=== PATIENT | female | born 1995 | race Caucasian/White ===

== ENCOUNTER 2018-01-15 10:14 | Inpatient (IN) | payer SELFPAY ==
[2018-01-15 10:31] VITALS: BMI 25.9
--- NOTE | 2018-01-15 11:04 | HP ---
COWS - Scale Resting Pulse: 0= [place] 80 or Below Sweatin= Beads of Sweat on Face Restless Observation: 1= Difficult to Sit Still Pupil Size: 1= Pupils >than Normal Bone or Joint Aches: 1= Mild Discomfort Runny Nose/ Eye Tearin= Nasal Congestion GI Upset > 30mins: 2= Nausea/Diarrhea (c/o nausea) Tremor Observation: 2= Slight Tremor Visible Yawning Observation: 0= None Anxiety or Irritability: 1=Feels Anxious/Irritable Goose Flesh Skin: 0=Smooth Skin COWS Score: 12 Admission ROS S - [facility] Chief Complaint: Having opiate withdrawal. Here for detox. Allergies/Adverse Reactions: Allergies Allergy/AdvReac Type Severity Reaction Status Date / Time Penicillins Allergy Verified 01/15/18 10:46 History of Present Illness: 22 yof w/ hx of heroin use since age 17. Crack use since age 20. Marijuana use since age 14. Xanax use since age 16. States uses all substances daily. Was in [facility] rehab at age 16 x 2 months. Has only had 8 months of sobriety since beginning drug use. Was in a methadone program for 12 months and left in 2017. Denies alcohol use. Denies hx. seizures. States hx asthma but denies recent exacerbation. Hx. thyroid disorder and states stopped synthroid 2 years ago. Denies other significant healthcare issues. - Ebola screening Have you traveled outside of the country in the last 21 days: No Have you had contact with anyone from an Ebola affected area: No Have you been sick,other than usual withdrawal symptoms: No Do you have a fever: No - Review of Systems EENT: reports: No Symptoms Reported Respiratory: reports: Other (Hx. asthma. Denies recent exacerbation.) Cardiac: reports: No Symptoms Reported GI: reports: Nausea (w/ withdrawal) : reports: No Symptoms Reported Musculoskeletal: reports: Joint Pain (w/ withdrawal) Integumentary: reports: No Symptoms Reported Neuro: reports: No Symptoms reported Endocrine: reports: Other (Hx. thyroid disorder. Stopped synthroid 2 years ago.) Hematology: reports: Anemia (Was on iron. Stopped.) Psychiatric: reports: Orientated x3, Agitated, Anxious, Depressed (Denies suicide or violent ideation.) Patient History - Patient Medical History Hx Anemia: Yes (was on iron) Hx Asthma: Yes Hx Chronic Obstructive Pulmonary Disease (COPD): No Hx Cancer: No Hx Cardiac Disorders: No Hx Congestive Heart Failure: No Hx Hypertension: No Hx Hypercholesterolemia: No Hx Pacemaker: No HX Cerebrovascular Accident: No Hx Seizures: No Hx Dementia: No Hx Diabetes: Yes (borderline diabetes) Hx Gastrointestinal Disorders: No Hx Liver Disease: No Hx Genitourinary Disorders: No Hx Sexually Transmitted Disorders: No Hx Renal Disease (ESRD): No Hx Thyroid Disease: Yes (was on synthroid. Last took 2 years ago. ) Hx Human Immunodeficiency Virus (HIV): No Hx Hepatitis C: No Hx Depression: Yes (denies suicide or violent ideation. ) Hx Suicide Attempt: No Hx Bipolar Disorder: No Hx Schizophrenia: No - Patient Surgical History Past Surgical History: No - PPD History Previous Implant?: Yes Documented Results: Negative w/o proof Implanted On Prior [facility] Admission?: No - Reproductive History Last Menstrual Period: 01/01/18 Patient : No - Smoking Cessation Smoking history: Former smoker Have you smoked in the past 12 months: No Aproximately how many cigarettes per day: 6 If you are a former smoker, when did you quit?: at age 18 Hx Chewing Tobacco Use: No Initiated information on smoking cessation: No - Substance & Tx. History Hx Alcohol Use: No Hx Substance Use: Yes Substance Use Type: Cocaine, Heroin, Marijuana, Tranquilizers (Xanax) Hx Substance Use Treatment: Yes (elvin Newby) - Substances Abused Heroin Route: Inhalation Frequency: Daily Amount used: 20 BAGS Age of first use: 17 Date of Last Use: 01/15/18 (6 am) Crack Route: Smoking Frequency: Daily Amount used: $300-400 Age of first use: 20 Date of Last Use: 01/14/18 Marijuana/Hashish Route: Smoking Frequency: Daily Amount used: $20 Age of first use: 14 Date of Last Use: 01/15/18 Alprazolam (Xanax) Route: Oral Frequency: Daily Amount used: 8-10 mg Age of first use: 16 Date of Last Use: 01/14/18 Family Disease History - Family Disease History Family Disease History: CA: Father () Admission Physical Exam BHS - Vital Signs Vital Signs: Vital Signs - 24 hr 01/15/18 10:28 Temperature 98.0 F Pulse Rate 71 Respiratory 18 Rate Blood Pressure 111/57 - Physical General Appearance: Yes: Nourished, Irritable, Anxious HEENTM: Yes: EOMI, Hearing grossly Normal, Normal Voice, JUDITH (Pupils at 4 mm), Nasal Congestion Respiratory: Yes: Chest Non-Tender, Lungs Clear, Normal Breath Sounds, No Respiratory Distress Neck: Yes: No masses,lesions,Nodules, Supple Breast: Yes: Breast Exam Deferred Cardiology: Yes: Regular Rhythm, Regular Rate, S1, S2 Abdominal: Yes: Non Tender, Flat, Soft Genitourinary: Yes: Within Normal Limits Back: Yes: Normal Inspection Musculoskeletal: Yes: full range of Motion, Gait Steady Extremities: Yes: Normal Capillary Refill, Normal Range of Motion, Non-Tender, Tremors (mild tremors hands w/ extension) Neurological: Yes: spring coverer II-XII NML intact, Fully Oriented, Motor Strength 5/5, Normal Mood/Affect Integumentary: Yes: Normal Color, Dry, Warm Lymphatic: Yes: Within Normal Limits Cleared for Admission S - Detox or Rehab [facility] Level of Care: Medically Managed Detox Regimen/Protocol: Methadone [facility] Breath Alcohol Content Breath Alcohol Content: 0
[2018-01-15] MEDS ORDERED: P-EPHED 60MG/TRIPROLIDI 2.5MG TABLET PO PRN (11:31)
[2018-01-15] MEDS ORDERED: ACETAMINOPHEN 325 MG TABLET (FP) PO PRN (11:31)
[2018-01-15] MEDS ORDERED: MENTHOL/PHENOL 1 EACH UD MM PRN (11:31)
[2018-01-15] MEDS ORDERED: LOPERAMIDE HCL 2 MG CAPSULE PO PRN (11:31)
[2018-01-15] MEDS ORDERED: IBUPROFEN 400 MG TABLET (FP) PO PRN (11:31)
[2018-01-15] MEDS ORDERED: MAGNESIUM HYDROX 2400MG/30ML ORAL SUSPENSION 30 ML CUP PO PRN (11:31)
[2018-01-15] MEDS ORDERED: hydrOXYzine PAMOATE 50 MG CAPSULE (FP) PO PRN (11:31)
[2018-01-15] MEDS ORDERED: MAGNESIUM CITRATE 300 ML BOTTLE PO PRN (11:31)
[2018-01-15] MEDS ORDERED: guaiFENesin/D-METHORPHAN HB 10 ML UNIT-DOSE CUPS PO PRN (11:31)
[2018-01-15] MEDS ORDERED: MAG HYDROX/AL HYDROX/SIMETH 30 ML UNIT-DOSE CUP PO PRN (11:31)
[2018-01-15] MEDS ORDERED: ALBUTEROL SO4 18 GM HFA INHALER IH PRN (11:35)
[2018-01-15] MEDS ORDERED: METHADONE HCL 10 MG TABLET (FOR DETOX USE ONLY) PO ONE ×2 (12:10→23:00)
[2018-01-15] MEDS: diazePAM 5 MG TABLET PO PRN (13:27)
[2018-01-15] MEDS: CYCLOBENZAPRINE HCL 5 MG TABLET PO SCH ×2 (15:01→22:07)
[2018-01-15] MEDS ORDERED: THIAMINE HCL 100 MG TABLET (FP) PO SCH (22:00)
[2018-01-15] MEDS ORDERED: MELATONIN 5 MG TABLETS PO PRN (22:00)
[2018-01-16] MEDS: CYCLOBENZAPRINE HCL 5 MG TABLET PO SCH ×2 (05:41→14:35)
[2018-01-16] MEDS: diazePAM 5 MG TABLET PO PRN ×2 (05:43→10:11)
[2018-01-16] MEDS ORDERED: METHADONE HCL 10 MG TABLET (FOR DETOX USE ONLY) PO ONE (10:00)
[2018-01-16] MEDS ORDERED: PRENATAL VITAMINS W/ FOLIC ACID TABLET (FP) PO SCH (10:00)
--- NOTE | 2018-01-16 10:18 | PN ---
BHS COWS - Scale Resting Pulse: 0= [place] 80 or Below Sweatin= Chills/Flushing Restless Observation: 1= Difficult to Sit Still Pupil Size: 1= Pupils >than Normal Bone or Joint Aches: 2= Severe Diffuse Aches Runny Nose/ Eye Tearin= Runny Nose/Eyes GI Upset > 30mins: 1= Stomach Cramp Tremor Observation of Outstretched Hands: 2= Slight Tremor Visible Yawning Observation: 2= >3x During Session Anxiety or Irritability: 2=Irritable/Anxious Goose Flesh Skin: 0=Smooth Skin COWS Score: 14 BHS Progress Note (SOAP) Subjective: joint pain body ache trouble sleep at night restlessness anxiety irritable Objective: 01/16/18 10:17 Vital Signs Temperature 98.1 F 01/16/18 09:23 Pulse Rate 58 L 01/16/18 09:23 Respiratory Rate 16 01/16/18 09:23 Blood Pressure 109/71 01/16/18 09:23 O2 Sat by Pulse Oximetry (%) Laboratory Last Values HIV 1&2 Antibody Screen Negative 01/15/18 11:20 HIV P24 Antigen Negative 01/15/18 11:20 lab noted Assessment: 01/16/18 10:18 withdrawal sx Plan: continue detox
--- NOTE | 2018-01-16 10:46 | EKG ---
Test Reason : Blood Pressure : / mmHG Vent. Rate : 063 BPM Atrial Rate : 063 BPM P-R Int : 152 ms QRS Dur : 078 ms QT Int : 374 ms P-R-T Axes : -12 062 005 degrees QTc Int : 382 ms NORMAL SINUS RHYTHM NORMAL ECG WHEN COMPARED WITH ECG OF 04-DEC-2012 16:11, NO SIGNIFICANT CHANGE WAS FOUND Confirmed by PARESH HURTADO MD ([id number]) on 01/16/2018 10:46:34 AM Referred By: Confirmed By:PARESH HURTADO MD
--- NOTE | 2018-01-16 11:00 | CONSULT ---
[facility] Psychiatric Consult - Data Date of interview: 01/16/18 Admission source: [facility] Identifying data: This is 22 years old, single, unemployed,living alone female with no psychiatric hospitalization history, re[prts heroin use since age 17. Crack use since age 20. Marijuana use since age 14. Xanax use since age 16. Patient sxpressing withdrawal symptoms and seeking for detox. Substance Abuse History: Smoking Cessation. Smoking history: Former smoker. Have you smoked in the past 12 months: No. Aproximately how many cigarettes per day: 6. If you are a former smoker, when did you quit?: at age 18. Hx Chewing Tobacco Use: No. Initiated information on smoking cessation: No. - Substance & Tx. History. Hx Alcohol Use: No. Hx Substance Use: Yes. Substance Use Type: Cocaine, Heroin, Marijuana, Tranquilizers (Xanax). Hx Substance Use Treatment: Yes (Blayne Matamoros, a [facility]). - Substances Abused. Heroin. Route: Inhalation. Frequency: Daily. Amount used: 20 BAGS. Age of first use: 17. Date of Last Use: 01/15/18 (6 am). Crack. Route: Smoking. Frequency: Daily. Amount used: $300-400. Age of first use: 20. Date of Last Use: 01/14/18. Marijuana/Hashish. Route: Smoking. Frequency: Daily. Amount used: $20. Age of first use: 14. Date of Last Use: 01/15/18. Alprazolam (Xanax). Route: Oral. Frequency: Daily. Amount used: 8-10 mg. Age of first use: 16. Date of Last Use: 01/14/18 Medical History: Asthma Thyroid disorder, history of MMTP Psychiatric History: Patient reports history of depression and anxiety, reports no medications taking preior to admiossion, denies previous psychiatreric admissions. Physical/Sexual Abuse/Trauma History: Denies Additional Comment: Observation. Detox Unit Care Protocol Mental Status Exam - Mental Status Exam Alert and Oriented to: Person Cognitive Function: Fair Patient Appearance: Unkempt Mood: Sad Affect: Flat Patient Behavior: Sedated Speech Pattern: Delayed Voice Loudness: Mildly Soft/Quiet Thought Process: Circumstantial Thought Disorder: Being Controlled Hallucinations: Denies Suicidal Ideation: Denies Homicidal Ideation: Denies Insight/Judgement: Fair Sleep: Difficulty falling asleep Appetite: Fair Muscle strength/Tone: Mild Hypotonicity Gait/Station: Shuffling Additional Comments: Observation. Detox Unit Care Protocol Psychiatric Findings - Problem List ([place] 1, 2,3) (1) Drug-induced mood disorder Current Visit: Yes Status: Acute (2) Cocaine dependence Current Visit: Yes Status: Acute Qualifiers: Substance use status: in withdrawal Qualified Code(s): F14.23 - Cocaine dependence with withdrawal (3) Opiate withdrawal Current Visit: Yes Status: Acute (4) Cannabis dependence Current Visit: Yes Status: Chronic (5) Anxiolytic dependence Current Visit: No Status: Chronic - Initial Treatment Plan Initial Treatment Plan: Observation. Detox Unit Care Protocol
[2018-01-16 11:10] LABS: HEMATOCRIT 41.4 % (32.4-45.2); HEMOGLOBIN 13.9 GM/dL (10.7-15.3); MCHC 33.6 g/dl (32.0-36.0); MEAN CELL VOLUME 86.3 fl (80-96); MEAN PLT VOLUME 8.2 fl (7.5-11.1); PLATELET COUNT 303 K/MM3 (134-434); RDW 13.9 % (11.6-15.6); WHITE BLOOD COUNT 7.3 K/mm3 (4.0-10.0)
[2018-01-16] MEDS ORDERED: PNEUMOCOCCAL 23 VACCINE 0.5 ML VIAL IM ONE (12:00)
[2018-01-16] MEDS ORDERED: PNEUMOC 13-VAL CONJ-DIP CRM/PF 0.5 ML DISP.SYRIN IM ONE (12:00)
[2018-01-16 12:38] LABS: ALBUMIN 3.9 g/dl (3.4-5.0); ANION GAP 9 (8-16); BLOOD UREA NITROGEN 12 mg/dL (7-18); CALCIUM 9.1 mg/dL (8.5-10.1); CHLORIDE 106 mmol/L (98-107); CO2 27 mmol/L (21-32); GLUCOSE,RANDOM 94 mg/dL (74-106); SGOT/AST 19 U/L (15-37); SGPT/ALT 17 U/L (12-78); SODIUM 142 mmol/L (136-145)
[2018-01-16 12:48] LABS: ALK PHOS 64 U/L (45-117); BILIRUBIN,TOTAL 0.7 mg/dL (0.2-1.0); TOT PROT 7.8 g/dl (6.4-8.2)
[2018-01-16 13:40] VITALS: BP 106/50; PULSE 92; TEMP 98.2
--- NOTE | 2018-01-16 14:32 | DS ---
[facility] Detox Discharge Summary Admission Date: 01/15/18 Discharge Date: 01/16/18 - History Present History: Opioid Dependence Additional Comments: 22 years old female admitted 01/15/18 for opiate withdrawal sx insists to terminate the opiate detox regimen patient expressed "not ready" to free from opiate patient is alert oriented x 3 no acute distress strong recommend community self help support meetings and community health services for medical and mental issues - Physical Exam Results Vital Signs: Vital Signs Temperature 98.2 F 01/16/18 13:39 Pulse Rate 92 H 01/16/18 13:39 Respiratory Rate 16 01/16/18 13:39 Blood Pressure 106/50 01/16/18 13:39 O2 Sat by Pulse Oximetry (%) Pertinent Admission Physical Exam Findings: opiate withdrawal sx Vital Signs Temperature 98.2 F 01/16/18 13:39 Pulse Rate 92 H 01/16/18 13:39 Respiratory Rate 16 01/16/18 13:39 Blood Pressure 106/50 01/16/18 13:39 O2 Sat by Pulse Oximetry (%) Laboratory Last Values WBC 7.3 K/mm3 (4.0-10.0) 01/16/18 06:00 RBC 4.80 M/mm3 (3.60-5.2) 01/16/18 06:00 Hgb 13.9 GM/dL (10.7-15.3) D 01/16/18 06:00 Hct 41.4 % (32.4-45.2) 01/16/18 06:00 MCV 86.3 fl (80-96) 01/16/18 06:00 MCH 29.0 pg (25.7-33.7) D 01/16/18 06:00 MCHC 33.6 g/dl (32.0-36.0) 01/16/18 06:00 RDW 13.9 % (11.6-15.6) D 01/16/18 06:00 Plt Count 303 K/MM3 (134-434) 01/16/18 06:00 MPV 8.2 fl (7.5-11.1) 01/16/18 06:00 Sodium 142 mmol/L (136-145) 01/16/18 06:00 Potassium 4.0 mmol/L (3.5-5.1) 01/16/18 06:00 Chloride 106 mmol/L (98-107) 01/16/18 06:00 Carbon Dioxide 27 mmol/L (21-32) 01/16/18 06:00 Anion Gap 9 (8-16) 01/16/18 06:00 BUN 12 mg/dL (7-18) 01/16/18 06:00 Creatinine 1.0 mg/dL (0.55-1.02) 01/16/18 06:00 Creat Clearance w eGFR > 60 (>60) 01/16/18 06:00 Random Glucose 94 mg/dL (74-106) 01/16/18 06:00 Calcium 9.1 mg/dL (8.5-10.1) 01/16/18 06:00 Total Bilirubin 0.7 mg/dL (0.2-1.0) D 01/16/18 06:00 AST 19 U/L (15-37) 01/16/18 06:00 ALT 17 U/L (12-78) 01/16/18 06:00 Alkaline Phosphatase 64 U/L (45-117) 01/16/18 06:00 Total Protein 7.8 g/dl (6.4-8.2) 01/16/18 06:00 Albumin 3.9 g/dl (3.4-5.0) 01/16/18 06:00 TSH 3.10 uIU/ml (0.358-3.74) 01/16/18 06:00 Resin T3 Uptake 31.0 % (30-39) 01/16/18 06:00 RPR Titer Nonreactive (NONREACTIVE) 01/16/18 06:00 HIV 1&2 Antibody Screen Negative 01/15/18 11:20 HIV P24 Antigen Negative 01/15/18 11:20 lab noted - Treatment Hospital Course: Detox Protocol Followed, Responded well Patient has Accepted a Rehab Referral to: as per counselor arranged - Medication Discharge Medications: Ambulatory Orders Albuterol Sulfate Inhaler - [Ventolin HFA Inhaler -] 2 inh PO Q4H PRN 01/15/18 - Diagnosis (1) Opioid dependence with withdrawal Status: Acute (2) Anxiety Status: Suspected (3) Asthma Status: Chronic Qualifiers: Asthma severity: mild Asthma persistence: intermittent Asthma complication type: with status asthmaticus Qualified Code(s): J45.22 - Mild intermittent asthma with status asthmaticus - AMA Did Patient Leave Against Medical Advice: Yes
[2018-01-17] MEDS ORDERED: METHADONE HCL 5 MG TABLET (FOR DETOX USE ONLY) PO ONE (10:00)
[2018-01-18] MEDS ORDERED: METHADONE HCL 5 MG TABLET (FOR DETOX USE ONLY) PO ONE (10:00)
[2018-01-19] MEDS ORDERED: METHADONE HCL 10 MG TABLET (FOR DETOX USE ONLY) PO ONE (10:00)
[2018-01-20] MEDS ORDERED: METHADONE HCL 5 MG TABLET (FOR DETOX USE ONLY) PO ONE (06:00)
== END 2018-01-16 14:39 | disposition left against medical advice (07) | DRG 770 ==
LOC: YASAS 10:14 → Y6N 11:35
PROVIDERS: ADMIT Family Medicine Addiction Medicine; ATTEND Family Medicine Addiction Medicine
PROC: HZ2ZZZZ Detoxification Services for Substance Abuse Treatment (ICD-10-PCS; principal; 2018-01-15)
DX: F11.23 Opioid dependence with withdrawal (principal); F13.20 Sedative, hypnotic or anxiolytic dependence, uncomplicated; F14.23 Cocaine dependence with withdrawal; F12.20 Cannabis dependence, uncomplicated; F32.9 Major depressive disorder, single episode, unspecified; F19.24 Other psychoactive substance dependence with psychoactive substance-induced mood disorder; F41.9 Anxiety disorder, unspecified; J45.22 Mild intermittent asthma with status asthmaticus; D64.9 Anemia, unspecified; Z88.0 Allergy status to penicillin
CPT/HCPCS: 36415; 80053; 84436; 84443; 84479; 85027; 86593; 87389; 93005; 93010

== ENCOUNTER 2018-04-24 07:42 | Emergency (ER) | payer SELFPAY ==
[2018-04-24 07:58] VITALS: BP 108/57; PULSE 84; TEMP 98.6; BMI 25.8
--- NOTE | 2018-04-24 08:43 | PDOC ---
History of Present Illness - General Chief Complaint: ,Possible Stated Complaint: /STD TESTING Time Seen by Provider: 04/24/18 08:31 History Source: Patient Exam Limitations: No Limitations - History of Present Illness Travel History: No Initial Comments: 04/24/18 08:47 CAME For testing./ States last normal menstrual cycle was December 26 and feels is probably for months . Was an unplanned but has intention to keep child. Needs DDS documentation of positive as she Has plans to enter detox next week for heroin detoxification. Timing/Duration: reports: changing over time Past History - Travel Traveled outside of the country in the last 30 days: No Close contact w/someone who was outside of country & ill: No - Past Medical History Allergies/Adverse Reactions: Allergies Allergy/AdvReac Type Severity Reaction Status Date / Time Penicillins Allergy Verified 04/24/18 07:55 Home Medications: Ambulatory Orders Albuterol Sulfate Inhaler - [Ventolin HFA Inhaler -] 2 inh PO Q4H PRN 01/15/18 Vitamins (Sjr) - 1 tab PO DAILY #30 tablet 04/24/18 Anemia: Yes (was on iron) Asthma: Yes Cancer: No Cardiac Disorders: No CVA: No COPD: No CHF: No Dementia: No Diabetes: Yes (borderline diabetes) GI Disorders: No Disorders: No HTN: No Hypercholesterolemia: No Kidney Stones: No Liver Disease: No Seizures: No Thyroid Disease: Yes (was on synthroid. Last took 2 years ago. ) - Reproductive History PID: No - Suicide/Smoking/Psychosocial Hx Smoking Status: Yes Smoking History: Never smoked Have you smoked in the past 12 months: No Number of Cigarettes Smoked Daily: 6 If you are a former smoker, when did you quit?: at age 18 'Breaking Loose' booklet given: 08/11/14 Hx Alcohol Use: No Drug/Substance Use Hx: Yes Substance Use Type: Cocaine, Heroin, Marijuana, Tranquilizers (Xanax) Hx Substance Use Treatment: Yes (elvin Newby) Abd/GI Specific PMHX - Complaint Specific PMHX Hepatitis: No Pancreatitis: No Review of Systems - Review of Systems Able to Perform ROS?: Yes Is the patient limited [place] proficient: Yes Constitutional: Yes: See HPI. No: Symptoms Reported, Fever, Malaise ABD/GI: Yes: See HPI, Nausea. No: Symptoms Reported : No: Symptoms Reported All Other Systems: Reviewed and Negative *Physical Exam - Vital Signs Last Vital Signs Temp Pulse Resp BP Pulse Ox 98.6 F 84 18 108/57 L 98 04/24/18 07:55 04/24/18 07:55 04/24/18 07:55 04/24/18 07:55 04/24/18 07:55 - Physical Exam General Appearance: Yes: Nourished, Appropriately Dressed. No: Apparent Distress HEENT: positive: JUDITH, Normal ENT Inspection, Normal Voice, TMs Normal, Pharynx Normal Neck: positive: Supple. negative: Tender Respiratory/Chest: positive: Lungs Clear Gastrointestinal/Abdominal: positive: Tender (mild ), Soft, Distended (firm / gravid abdomen ). negative: Guarding, Rebound Musculoskeletal: positive: Normal Inspection. negative: CVA Tenderness Extremity: positive: Normal Capillary Refill, Normal Inspection Integumentary: positive: Normal Color, Dry, Warm Neurologic: positive: barrel rifler hook II-XII NML intact, Fully Oriented, Alert, Normal Mood/ Affect, Normal Response, Motor Strength 5/5 *DC/Admit/Observation/Transfer Diagnosis at time of Disposition: Qualifiers: Weeks of gestation: unspecified Qualified Code(s): Z34.90 - Encounter for supervision of normal , unspecified, unspecified trimester - Discharge Dispostion Disposition: HOME Condition at time of disposition: Stable Decision to Admit order: No - Prescriptions Prescriptions: Vitamins (S[facility]r) - 1 tab PO DAILY #30 tablet - Referrals [facility]: [facility]Outside] - Patient Instructions Additional Instructions: Rest, avoid heavy lifting or strenuous activity Rink lots of fluids, water, teas, soups vitamins daily Avoid any further drug use to avoid fetus injury Have appointment as soon as possible - Post Discharge Activity
== END 2018-04-24 09:09 | disposition home or self-care (01) ==
LOC: JER 07:42 → JERFT 07:42
DX: Z34.90 Encounter for supervision of normal pregnancy, unspecified, unspecified trimester (principal)
CPT/HCPCS: 84703; 99281-25

== ENCOUNTER 2018-09-25 21:25 | Inpatient (IN) | payer OTHER ==
[~2018-09-25 21:25] MED LIST: DEXTROSE 5%-LACTATED RINGERS 1,000 ML IV SCH
[2018-09-25 22:10] LABS: BASO % 0.3 % (0-2.0); HEMATOCRIT 34.9 % (32.4-45.2); HEMOGLOBIN 12.2 GM/dL (10.7-15.3); LYMPH % 19.8 % (8-40); MCH 31.3 pg (25.7-33.7); MCHC 34.8 g/dl (32.0-36.0); MEAN CELL VOLUME 89.8 fl (80-96); MEAN PLT VOLUME 8.3 fl (7.5-11.1); MONO % 8.3 % (3.8-10.2); NEUT % 70.6 % (42.8-82.8); PLATELET COUNT 221 K/MM3 (134-434); RBC 3.89 M/mm3 (3.60-5.2); RDW 13.3 % (11.6-15.6)
[2018-09-25 22:14] VITALS: BMI 33.1
[2018-09-25 22:27] LABS: INR 0.86 (0.83-1.09); PROTHROMBIN TIME (PATIENT) 10.1 SEC (9.7-13.0)
[2018-09-25 22:30] LABS: ACTIVATED PTT 27.4 SECONDS (25.2-36.5)
[2018-09-25 22:54] LABS: ANION GAP 7 MMOL/L (8-16); BLOOD UREA NITROGEN 9 mg/dL (7-18); CALCIUM 8.6 mg/dL (8.5-10.1); CHLORIDE 105 mmol/L (98-107); CO2 26 mmol/L (21-32); CREATININE 0.8 mg/dL (0.55-1.3); GLUCOSE,RANDOM 92 mg/dL (74-106); POTASSIUM 4.1 mmol/L (3.5-5.1); SODIUM 138 mmol/L (136-145)
[2018-09-25] MEDS ORDERED: BUTORPHANOL TARTRATE 1 MG/ML VIAL IVPB ONE (23:33)
[2018-09-26] MEDS: ELECTROLYTE-148 SOLN 1,000 ML IV SCH ×2 (00:10→06:30)
--- NOTE | 2018-09-26 00:50 | HP ---
Past Medical History - Admission Chief Complaint: SROM History of Present Illness: 23yo @ 37.6wks here with SROM- 8:55pm. Clear fluid. No VB. +ctx. +FM Preg c/b methadone use 120mg History Source: Patient Limitations to Obtaining History: No Limitations - Past Medical History ...: 1 ...Para: 0 ...Term: 0 ...: 0 ...Spon : 0 ...Induced : 0 ...Multiple Gestation: 0 ...LMP: 01/02/18 ... Weeks Gestation by Dates: 37.6 ...EDC by Dates: 10/10/18 ...EDC by Sono: 10/09/18 Infectious Disease: No: AIDS, C-Diff, Herpes Zoster, HIV, MRSA, STD's, Tuberculosis, VREF, Other Musculoskeletal: No: Bursitis, Chronic low back pain, Hemiparesis, Hemiplegia, Osteoarthritis, Paraplegia, Other Rheumatology: No: Fibromyalgia, Gout, Lupus, Rheumatoid Arthritis, Sarcoidosis, Vasculitis, Other ENT: No: Allergic Rhinitis, Sinusitis, Other Endocrine: No: [place]'s Disease, [place]'s Disease, Diabetes Insipidus, Diabetes Mellitus, Hyperparathyroidism, Hyperthyroidism, Hypothyroidism, Osteopenia, SIADH, Other Dermatology: No: Basal Cell, Cellulitis, Eczema, Melanoma, Psoriasis, Squamous Cell, Other - Past Surgical History Past Surgical History: No: None, AAA Repair, AICD, Amputation, Appendectomy, Arthrosocopy, AV Fistula/Graft, Bariatric Surgery, Breast Biopsy, Bypass, CABG, Carotid Endarterectomy, Cataract Removal, Cholecystectomy, Colectomy, Colonoscopy, Colostomy, Craniotomy, , Cystectomy, Hernia Repair, Hysterectomy, Ileal Conduit, Ileosotomy, Joint Replacement, Kidney Transplant, Laminectomy, Liver Transplant, Mastectomy, Nephrectomy, Oopherectomy, Orchiectomy, Permanent Pacemaker, Prostatectomy, Splenectomy, Stent, Thoracotomy , TURP, Tonsillectomy, Tubal Ligation, Upper Endoscopy, Valve Replacement, Vasectomy, Vein Stripping/Ligation Hx Myomectomy: No Hx Transabdominal Cerclage: No - Smoking History Smoking history: Never smoked Have you smoked in the past 12 months: No Aproximately how many cigarettes per day: 6 If you are a former smoker, when did you quit?: at age 18 - Alcohol/Substance Use Hx Alcohol Use: No History of Substance Use: reports: Heroin, Prescription - Social History Usual Living Arrangement: Yes: Alone ADL: Independent History of Recent Travel: No Home Medications - Allergies Allergies/Adverse Reactions: Allergies Allergy/AdvReac Type Severity Reaction Status Date / Time Penicillins Allergy Swelling Verified 09/25/18 21:37 - Home Medications Home Medications: Ambulatory Orders Vitamins (Sjr) - 1 tab PO DAILY #30 tablet 04/24/18 Ferrous Sulfate [Feosol] 1 tab PO DAILY 09/25/18 Methadone 120 mg PO DAILY 09/25/18 Family Disease History - Family Disease History Family Disease History: CA: Father () Physical Exam - Maternity Vital Signs: Vital Signs Temperature 98.5 F 09/25/18 22:01 Pulse Rate 78 09/25/18 23:00 Respiratory Rate 20 09/25/18 23:00 Blood Pressure 136/67 09/25/18 23:00 O2 Sat by Pulse Oximetry (%) - Abdominal Exam/OB Number of Fetuses: Single Presentation: Vertex Contractions: Yes Regularity: Irritability Intensity: Mild Heart Rate [facility]: [facility] Category: I Accelerations: Non-Uniform Decelerations: None - Vaginal Exam/OB Vaginal Bleediing: No Dilatation (cm): 1 Effacement (%): 50 Amniotic Membrane Status: Ruptured Nitrazine Test: Positive Amniotic Fluid: Yes: Clear Meconium: Light Presentation: Vertex/Position Station: -3 - Labs Lab Results: CBC, BMP 09/25/18 22:00 09/25/18 22:00 Problem List - Problems (1) SROM (spontaneous rupture of membranes) Code(s): [id number] - Assessment/Plan 23yo @ 37.6wks here with SROM Admit to L&D IVFs GBS neg Regular ctx, will augment if needed Epidural as needed Anticipate CALOS Knott MD
[2018-09-26] MEDS ORDERED: FENTANYL/BUPIVACAINE/NS/PF - PCEA - 50 ML DISP.SYRIN EP ONE ×2 (02:51→07:09)
[2018-09-26] MEDS ORDERED: NALOXONE HCL 0.4 MG/ML VIAL IVPUSH PRN (03:33)
[2018-09-26] MEDS ORDERED: FENTANYL/BUPIVACAINE/NS/PF - PCEA - 50 ML DISP.SYRIN EP SCH (03:45)
[2018-09-26] MEDS ORDERED: LIDOCAINE HCL 1% PRESERVATIVE FREE - 30ML VIAL ONE (07:24)
[2018-09-26] MEDS ORDERED: OXYTOCIN 20 UNITS in 0.9% NS 20 UNIT/1,000 ML INFUS.BAG IV ONE ×2 (07:24→09:18)
[2018-09-26] MEDS: METHADONE HCL 40 MG DISPERSABLE TABLET PO SCH (08:30)
[2018-09-26] MEDS ORDERED: WITCH HAZEL 50% (TUCKS) 40 PAD/JAR PAD TP PRN (08:31)
[2018-09-26] MEDS ORDERED: BENZOCAINE 20% 57 GM BOTTLE TP PRN (08:31)
[2018-09-26] MEDS ORDERED: ACETAMINOPHEN 325 MG TABLET (FP) PO PRN (08:31)
[2018-09-26] MEDS ORDERED: IBUPROFEN 600 MG TABLET (FP) PO PRN (08:31)
[2018-09-26] MEDS ORDERED: BISACODYL 10 MG SUPP.RECT RC PRN (08:31)
[2018-09-26] MEDS ORDERED: BENZOCAINE 28 GM HEMORRHOIDAL OINTMENT TP PRN (08:31)
[2018-09-26] MEDS ORDERED: METHYLERGONOVINE MALEATE 0.2 MG/1 ML AMP IM PRN (08:31)
--- NOTE | 2018-09-26 08:35 | PN ---
Delivery - Delivery Vaginal Delivery: Spontaneous Episiotomy/Laceration: None EBL (cc): 300 Delivery, Single - Feeding Plan Initial Plan: Elected not to breastfeed exclusively throughout hospitalization Remarks - Remarks Remarks: Normal spontaneous vaginal delivery of a live infant boy over intact perineum. Nose / Oropharynx suctioned @ perineum. Cord clamped and cut. Baby handed to nurse. Placenta removed in pieces. Mother. in stable condition
[2018-09-26] MEDS: OXYTOCIN 20 UNITS in 0.9% NS 20 UNIT/1,000 ML INFUS.BAG IV SCH (09:00)
[2018-09-26] MEDS: PRENATAL VITAMINS W/ FOLIC ACID TABLET (FP) PO SCH (10:09)
[2018-09-26] MEDS: FERROUS SO4 325 MG TABLET (FP) PO SCH (17:09)
[2018-09-27] MEDS: METHADONE HCL 40 MG DISPERSABLE TABLET PO SCH (06:15)
[2018-09-27 07:07] LABS: BASO % 0.7 % (0-2.0); EOS % 1.4 % (0-4.5); HEMATOCRIT 30.5 % (32.4-45.2); HEMOGLOBIN 10.6 GM/dL (10.7-15.3); LYMPH % 24.9 % (8-40); MCH 31.6 pg (25.7-33.7); MCHC 34.9 g/dl (32.0-36.0); MEAN CELL VOLUME 90.6 fl (80-96); MEAN PLT VOLUME 8.1 fl (7.5-11.1); MONO % 7.4 % (3.8-10.2); NEUT % 65.6 % (42.8-82.8); PLATELET COUNT 199 K/MM3 (134-434); RBC 3.37 M/mm3 (3.60-5.2); WHITE BLOOD COUNT 10.5 K/mm3 (4.0-10.0)
--- NOTE | 2018-09-27 07:46 | PN ---
Progress Note (short form) - Note Progress Note: ppd 1 doing well, no excess vaginal bleeding CBC, BMP 09/25/18 22:00 Last Vital Signs Temp Pulse Resp BP Pulse Ox 98.4 F 74 20 120/75 99 09/27/18 06:00 09/27/18 06:00 09/27/18 06:00 09/27/18 06:00 09/26/18 09:15 abdomen soft , firm , non tender no calf tenderness plan ambulate , cbc
[2018-09-27] MEDS: PRENATAL VITAMINS W/ FOLIC ACID TABLET (FP) PO SCH (09:05)
[2018-09-27] MEDS: FERROUS SO4 325 MG TABLET (FP) PO SCH ×2 (09:05→16:58)
[2018-09-27] MEDS ORDERED: SENNOSIDES/DOCUSATE COMBO (SENNA PLUS) TABLET (UD) PO PRN (22:00)
[2018-09-28] MEDS: OXYTOCIN 20 UNITS in 0.9% NS 20 UNIT/1,000 ML INFUS.BAG IV SCH (00:15)
[2018-09-28] MEDS: ELECTROLYTE-148 SOLN 1,000 ML IV SCH (00:15)
[2018-09-28] MEDS: METHADONE HCL 40 MG DISPERSABLE TABLET PO SCH (06:45)
--- NOTE | 2018-09-28 08:01 | PN ---
Post Progress Note - Subjective Subjective: no complains Post Day: 2 Type of Delivery: Vital Signs: Vital Signs Temperature 98.3 F 09/27/18 22:00 Pulse Rate 83 09/27/18 22:00 Respiratory Rate 18 09/27/18 22:00 Blood Pressure 126/73 09/27/18 22:00 O2 Sat by Pulse Oximetry (%) 99 09/26/18 09:15 Breast Exam: Yes: Soft, Other (pumping breast milk for BF ). No: Engorged Uterus: Yes: Fundus Firm, Fundus below umbilicus, Non-tender Lochia: Yes: Rubra Lochia, amount: Moderate Extremities: Yes: Calves non-tender Perineum: Yes: Intact Activity: Ambulating - Labs Labs: CBC WBC 10.5 K/mm3 (4.0-10.0) H 09/27/18 06:36 RBC 3.37 M/mm3 (3.60-5.2) L 09/27/18 06:36 Hgb 10.6 GM/dL (10.7-15.3) L 09/27/18 06:36 Hct 30.5 % (32.4-45.2) L 09/27/18 06:36 MCV 90.6 fl (80-96) 09/27/18 06:36 MCH 31.6 pg (25.7-33.7) 09/27/18 06:36 MCHC 34.9 g/dl (32.0-36.0) 09/27/18 06:36 RDW 13.0 % (11.6-15.6) 09/27/18 06:36 Plt Count 199 K/MM3 (134-434) 09/27/18 06:36 MPV 8.1 fl (7.5-11.1) 09/27/18 06:36 Absolute Neuts (auto) 6.9 K/mm3 (1.5-8.0) 09/27/18 06:36 Neutrophils % 65.6 % (42.8-82.8) 09/27/18 06:36 Lymphocytes % 24.9 % (8-40) D 09/27/18 06:36 Monocytes % 7.4 % (3.8-10.2) 09/27/18 06:36 Eosinophils % 1.4 % (0-4.5) 09/27/18 06:36 Basophils % 0.7 % (0-2.0) 09/27/18 06:36 Nucleated RBC % 0 % (0-0) 09/27/18 06:36 Problem List - Problems (1) Vaginal delivery Code(s): O80 - ENCOUNTER FOR FULL-TERM UNCOMPLICATED DELIVERY (2) Encounter for care and examination after delivery Code(s): Z39.2 - ENCOUNTER FOR ROUTINE FOLLOW-UP Assessment/Plan stab;e plan she will ct Methadone rehab program . pt states she is clean . Baby is retained in the hosp. discharge today
[2018-09-28 10:01] VITALS: BP 117/73; PULSE 90; TEMP 98.9
[2018-09-28] MEDS: FERROUS SO4 325 MG TABLET (FP) PO SCH (10:13)
[2018-09-28] MEDS: PRENATAL VITAMINS W/ FOLIC ACID TABLET (FP) PO SCH (10:13)
== END 2018-09-28 10:35 | disposition home or self-care (01) | DRG 560 ==
LOC: JLDR 21:25 → J3W 09-26 09:37
PROVIDERS: ADMIT Obstetrics & Gynecology; ATTEND Obstetrics & Gynecology
PROC: 10E0XZZ Delivery of Products of Conception, External Approach (ICD-10-PCS; principal; 2018-09-26)
DX: O80 Encounter for full-term uncomplicated delivery (principal); Z3A.37 37 weeks gestation of pregnancy; Z37.0 Single live birth
CPT/HCPCS: 36415; 59409; 80048; 85025; 85610; 85730; 86593; 86850; 86900; 86901

== ENCOUNTER 2019-03-24 04:24 | Emergency (ER) | payer OTHER ==
[2019-03-24 04:32] VITALS: BMI 28.6
[2019-03-24] MEDS ORDERED: ACETAMINOPHEN 325 MG TABLET (FP) PO ONE (04:33)
[2019-03-24] MEDS ORDERED: ACETAMINOPHEN 325 MG TABLET (FP) ONE (04:42)
[2019-03-24] MEDS ORDERED: ACETAMINOPHEN INJECTION 100 ML IVPB ONE (04:45)
[2019-03-24] MEDS ORDERED: SODIUM CHLORIDE 1,000 ML IV SCH (04:45)
--- NOTE | 2019-03-24 04:56 | PDOC ---
Attending Attestation - Resident Resident Name: Azalia Mejias - ED Attending Attestation I have performed the following: I have examined & evaluated the patient, The case was reviewed & discussed with the resident, I agree w/resident's findings & plan - HPI HPI: 03/24/19 05:55 Pt comes with a cold and a sore throat. He kids are sick. She is and she wants to leave soon so that she can get her methadone from her meth program. - Physicial Exam PE: 03/24/19 05:56 Agree with resident exam - Medical Decision Making 03/24/19 05:56 Pt is getting IV hydration and she will follow with her PMD as needed. CBC is normal. Exam is normal. IVF given. 03/24/19 06:22 CBC normal; Chem and UA pending. 03/24/19 06:26 Pt has a UTI and she will be treated with macrobid x 5 days BID
--- NOTE | 2019-03-24 04:57 | PDOC ---
History of Present Illness - General Chief Complaint: Cold Symptoms Stated Complaint: FEVER Time Seen by Provider: 03/24/19 04:33 - History of Present Illness Initial Comments: 03/24/19 04:52 23 year old woman 10 weeks fever and sore throat since last ngiht tmax 104F just prior to arrival no cough, no abdominal pain, no dysuria two kids at home with recent viral URI and coxsackie takes methadone 120mg, next dose at 0600, prescribed by [facility] PE: erythematous oropharynx no exudate ctab, rrr ED Course: strep negative + uti penicillin allergy macrobid dosed send home Past History - Past Medical History Allergies/Adverse Reactions: Allergies Allergy/AdvReac Type Severity Reaction Status Date / Time Penicillins Allergy Swelling Verified 03/24/19 04:32 Home Medications: Ambulatory Orders Vitamins (Sjr) - 1 tab PO DAILY #30 tablet 04/24/18 Ferrous Sulfate [Feosol] 1 tab PO DAILY 09/25/18 Methadone 120 mg PO DAILY 09/25/18 Acetaminophen [Tylenol .Regular Strength -] 650 mg PO Q3H PRN tablet 09/28/18 Ferrous Sulfate [Feosol] 325 mg PO BIDWM tab 09/28/18 Ibuprofen [Motrin -] 200 mg PO Q4H PRN tablet 09/28/18 Methadone [Dolophine -] 120 mg PO DAILY@0600 #1 tablet MDD 120 mg 09/28/18 Vitamins (Sjr) - 1 tab PO DAILY tablet 09/28/18 Nitrofurantoin Monohyd/M-Cryst [Macrobid -] 100 mg PO BID #10 capsule 03/24/19 Anemia: Yes (was on iron) Asthma: No Cancer: No Cardiac Disorders: No CVA: No COPD: No CHF: No Dementia: No Diabetes: No GI Disorders: No Disorders: No HTN: No Hypercholesterolemia: No Kidney Stones: No Liver Disease: No Seizures: No Thyroid Disease: No - Reproductive History PID: No - Suicide/Smoking/Psychosocial Hx Smoking Status: Yes Smoking History: Never smoked Have you smoked in the past 12 months: No Number of Cigarettes Smoked Daily: 6 If you are a former smoker, when did you quit?: at age 18 Information on smoking cessation initiated: No 'Breaking Loose' booklet given: 08/11/14 Hx Alcohol Use: No Drug/Substance Use Hx: No Substance Use Type: Cocaine, Heroin, Marijuana, Tranquilizers (Xanax) Hx Substance Use Treatment: Yes (on methadone) *Physical Exam - Vital Signs Last Vital Signs Temp Pulse Resp BP Pulse Ox 99.9 F H 121 H 20 116/84 98 03/24/19 04:24 03/24/19 04:24 03/24/19 04:24 03/24/19 04:24 03/24/19 04:24 ED Treatment Course - LABORATORY CBC & Chemistry Diagram: 03/24/19 05:00 03/24/19 05:00 *DC/Admit/Observation/Transfer Diagnosis at time of Disposition: UTI (urinary tract infection), Viral URI - Discharge Dispostion Condition at time of disposition: Fair Decision to Admit order: No - Prescriptions Prescriptions: Nitrofurantoin Monohyd/M-Cryst [Macrobid -] 100 mg PO BID #10 capsule - Referrals Referrals: Blair Lockett MD [Primary Care Provider] - - Patient Instructions Printed Discharge Instructions: DI for Viral Upper Respiratory Infection -- Adult, DI for Urinary Tract Infection (UTI) Additional Instructions: You were seen in the ED for complaints of fever and sore throat Your labs showed a urinary tract infection and you likely have a viral upper respiratory fracture. You were prescribed antibiotics for your UTI, please take as indicated. Return to the ED if you have worsening symptoms nausea, vomiting or blood in the urine. - Post Discharge Activity
[2019-03-24 05:14] LABS: BASO % 0.4 % (0-2.0); EOS % 0.1 % (0-4.5); HEMATOCRIT 38.8 % (32.4-45.2); HEMOGLOBIN 13.5 GM/dL (10.7-15.3); LYMPH % 9.8 % (8-40); MCH 29.1 pg (25.7-33.7); MCHC 34.8 g/dl (32.0-36.0); MEAN CELL VOLUME 83.6 fl (80-96); MEAN PLT VOLUME 7.9 fl (7.5-11.1); MONO % 7.5 % (3.8-10.2); NEUT % 82.2 % (42.8-82.8); PLATELET COUNT 212 K/MM3 (134-434); RBC 4.64 M/mm3 (3.60-5.2); RDW 15.4 % (11.6-15.6)
[2019-03-24 06:23] LABS: EPI CELLS 13.6 /HPF (0-5/HPF); HYALINE CASTS 15 /lpf (0-8); PH,URINE 6.5 (5.0-8.0); URINE APPEARANCE CLOUDY; URINE BACTERIA 305.9 /hpf (NEGATIVE); URINE BILIRUBIN NEGATIVE (NEGATIVE); URINE COLOR YELLOW; URINE GLUCOSE (UA) NEGATIVE (NEGATIVE); URINE KETONE NEGATIVE (NEGATIVE); URINE LEUK ESTERASE 3+ (NEGATIVE); URINE NITRITE NEGATIVE (NEGATIVE); URINE PROTEIN NEGATIVE (NEGATIVE); URINE RBC 8 /hpf (0-4); URINE UROBILINOGEN 0.2 mg/dL (0.2-1.0); URINE WBC 40 /hpf (0-5)
[2019-03-24] MEDS ORDERED: CEPHALEXIN MONOHYDRATE 500 MG CAPSULE (UD) PO ONE (06:26)
[2019-03-24 06:27] VITALS: TEMP 98.6
[2019-03-24] MEDS ORDERED: ACETAMINOPHEN 1000 MG/100 ML VIAL (NON FORMULARY) IVPB ONE (06:27)
[2019-03-24] MEDS ORDERED: NITROFURANTOIN MACROCRYSTAL 50 MG CAPSULE (FP) PO SCH (06:30)
[2019-03-24] MEDS ORDERED: CEPHALEXIN MONOHYDRATE 500 MG CAPSULE (UD) ONE (06:31)
[2019-03-24] MEDS ORDERED: NITROFURANTOIN MACROCRYSTAL 50 MG CAPSULE (FP) ONE (06:31)
[2019-03-24 06:43] VITALS: BP 106/61; PULSE 82
[2019-03-24 07:01] LABS: ALBUMIN 3.4 g/dl (3.4-5.0); BILIRUBIN,TOTAL 0.5 mg/dL (0.2-1); BLOOD UREA NITROGEN 9.9 mg/dL (7-18); CALCIUM 8.6 mg/dL (8.5-10.1); CREATININE 0.9 mg/dL (0.55-1.3); POTASSIUM 4.1 mmol/L (3.5-5.1)
[2019-03-24 09:18] LABS: PLATELET ESTIMATE ADEQUATE
== END 2019-03-24 06:43 | disposition home or self-care (01) ==
LOC: JER 04:24
PROC: 3E033NZ Introduction of Analgesics, Hypnotics, Sedatives into Peripheral Vein, Percutaneous Approach (ICD-10-PCS; principal; 2019-03-24)
DX: O26.891 Other specified pregnancy related conditions, first trimester (principal); O23.41 Unspecified infection of urinary tract in pregnancy, first trimester; J06.9 Acute upper respiratory infection, unspecified; B97.89 Other viral agents as the cause of diseases classified elsewhere; Z3A.10 10 weeks gestation of pregnancy
CPT/HCPCS: 36415; 80053; 81003; 84702; 85025; 87070; 87880; 96374; 99282-25; J0131; J7030

== ENCOUNTER 2019-09-28 05:12 | Emergency (ER) | payer OTHER ==
--- NOTE | 2019-09-28 05:48 | PDOC ---
History of Present Illness - General Chief Complaint: Cold Symptoms Stated Complaint: CONGESTION/WEAKNESS Time Seen by Provider: 09/28/19 05:47 History Source: Patient Exam Limitations: No Limitations - History of Present Illness Initial Comments: 24 year old female with PMH gary's thyroiditis, NIDDM presented to ED for palpitations occurring for a month, worsening in the last two days. She reported for the last month she has been affected by palpitations occurring intermittently, about once a week. She reported she has also been experiencing entire body numbness, that begins at her toes and travels up her entire body, occurring about a once a week. She reports of the last two days she has felt the symptoms occur more frequently. She reported that they have almost been constant at this point. She reported that the symptoms will last about a minute go away and then come back. She reported this can come and go for about an hour. and the last time she had her thyroid function checked was many years ago. She reported that she gained 80 pounds in the last few months without increased eating.She reported she just signed up with a new primary care doctor , was seen a week ago, and that recent bloodwork is not back yet. She also reported a runny nose with nasal congestion for 1 day. She denied cough, fever, sore throat. Pt reported a history of crack cocaine (snort) and heroine use ( inject), last used x3 years ago, currently on methadone. ROS General: admitted to chills, generalized weakness. denied fever. HEENT: admitted to rhinorrhea. denied sore throat, ear pain. Cardiovascular: admitted to palpitations. denied chest pain, syncope, diaphoresis. Respiratory: denied shortness of breath, cough, sputum production, hemoptysis. Gastrointestinal: denied abdominal pain, nausea, vomiting, diarrhea, constipation, blood in stool. Genitourinary: denied dysuria, increased urinary frequency, hematuria, urinary incontinence, flank pain. Back: denied back pain. Musculoskeletal: denied joint pain, muscle pain, joint swelling. Neurological: admitted to numbness, tinglingdenied headache, dizziness, weakness. Integumentary: denied rash, laceration, abrasion. Hematologic/Lymphatic: denied bruising or bleeding. PE Constitutional: Well-nourished, Well-developed, appearing stated age. HEENT: head is normocephalic, atraumatic. EOMI. PERRLA. no posterior pharyngeal erythema. no tonsillar swelling or exudates bilaterally. uvula midline. no peritonsillar swelling. no jaw tenderness or misalignment. Neck: supple. Full ROM. Cardiovascular: regular heart rhythm. Normal S1 and S2. no murmurs. no pericardial friction rub. Respiratory: clear to auscultation bilaterally. no crackles, rhonchi or wheezing. no stridor. Gastrointestinal: soft, flat, nontender. normal bowel sounds. no rebound, guarding, or masses. Extremities: peripheral pulses intact and equal. no lower extremity edema noted. Neurological: CN 2-12 grossly intact. moves all four extremities. Psych: awake, alert, oriented x3. follows commands. answers questions appropriately. Past History - Past Medical History Allergies/Adverse Reactions: Allergies Allergy/AdvReac Type Severity Reaction Status Date / Time Penicillins Allergy Swelling Verified 09/28/19 06:01 Home Medications: Ambulatory Orders Vitamins (Sjr) - 1 tab PO DAILY #30 tablet 04/24/18 Ferrous Sulfate [Feosol] 1 tab PO DAILY 09/25/18 Methadone 120 mg PO DAILY 09/25/18 Acetaminophen [Tylenol .Regular Strength -] 650 mg PO Q3H PRN tablet 09/28/18 Ferrous Sulfate [Feosol] 325 mg PO BIDWM tab 09/28/18 Ibuprofen [Motrin -] 200 mg PO Q4H PRN tablet 09/28/18 Methadone [Dolophine -] 120 mg PO DAILY@0600 #1 tablet MDD 120 mg 09/28/18 Vitamins (Sjr) - 1 tab PO DAILY tablet 09/28/18 Nitrofurantoin Monohyd/M-Cryst [Macrobid -] 100 mg PO BID #10 capsule 03/24/19 Nitrofurantoin Monohyd/M-Cryst [Macrobid -] 100 mg PO BID 5 Days #10 capsule 08/18 - Psycho Social/Smoking Cessation Hx Number of Cigarettes Smoked Daily: 6 If you are a former smoker, when did you quit?: at age 18 'Breaking Loose' booklet given: 08/11/14 Drug/Substance Use Hx: Yes Substance Use Type: Cocaine, Heroin, Marijuana, Tranquilizers (Xanax) Hx Substance Use Treatment: Yes (on methadone) ED Treatment Course - LABORATORY CBC & Chemistry Diagram: 09/28/19 06:10 09/28/19 06:10 Medical Decision Making - Medical Decision Making 24 year old female with above PMH presented to ED for palpitations, whole body numbness, runny nose, nasal congestion. Initial Vital Signs Temp Pulse Resp BP Pulse Ox 98.1 F 94 H 15 129/74 100 09/28/19 05:15 09/28/19 05:15 09/28/19 05:15 09/28/19 05:15 09/28/19 05:15 Afebrile. No tachycardia. No tachypnea. No hypotension. No hypoxia on room air. EKG performed at 0641: rate 75, regular rhythm, normal axis, normal intervals, no acute ST changes. Pt signed out to Dr. Tejeda. Pending lab results, CXR, disposition. 09/28/19 18:43 Laboratory Last Values WBC 8.1 K/mm3 (4.0-10.0) 09/28/19 06:10 RBC 4.72 M/mm3 (3.60-5.2) 09/28/19 06:10 Hgb 13.4 GM/dL (10.7-15.3) 09/28/19 06:10 Hct 39.0 % (32.4-45.2) 09/28/19 06:10 MCV 82.5 fl (80-96) 09/28/19 06:10 MCH 28.5 pg (25.7-33.7) 09/28/19 06:10 MCHC 34.5 g/dl (32.0-36.0) 09/28/19 06:10 RDW 13.4 % (11.6-15.6) D 09/28/19 06:10 Plt Count 289 K/MM3 (134-434) D 09/28/19 06:10 MPV 8.1 fl (7.5-11.1) 09/28/19 06:10 Absolute Neuts (auto) 5.5 K/mm3 (1.5-8.0) 09/28/19 06:10 Neutrophils % 68.1 % (42.8-82.8) 09/28/19 06:10 Lymphocytes % 22.9 % (8-40) D 09/28/19 06:10 Monocytes % 6.9 % (3.8-10.2) 09/28/19 06:10 Eosinophils % 1.5 % (0-4.5) D 09/28/19 06:10 Basophils % 0.6 % (0-2.0) 09/28/19 06:10 Nucleated RBC % 0 % (0-0) 09/28/19 06:10 Sodium 136 mmol/L (136-145) 09/28/19 06:10 Potassium 4.2 mmol/L (3.5-5.1) 09/28/19 06:10 Chloride 103 mmol/L (98-107) 09/28/19 06:10 Carbon Dioxide 27 mmol/L (21-32) 09/28/19 06:10 Anion Gap 7 MMOL/L (8-16) L 09/28/19 06:10 BUN 11.2 mg/dL (7-18) 09/28/19 06:10 Creatinine 1.1 mg/dL (0.55-1.3) 09/28/19 06:10 Est GFR (CKD-EPI)AfAm 81.95 09/28/19 06:10 Est GFR (CKD-EPI)NonAf 70.71 09/28/19 06:10 Random Glucose 104 mg/dL (74-106) 09/28/19 06:10 Calcium 9.0 mg/dL (8.5-10.1) 09/28/19 06:10 Phosphorus 2.7 mg/dL (2.5-4.9) 09/28/19 06:10 Magnesium 1.9 mg/dL (1.8-2.4) 09/28/19 06:10 Total Bilirubin 0.5 mg/dL (0.2-1) 09/28/19 06:10 AST 20 U/L (15-37) 09/28/19 06:10 ALT 22 U/L (13-61) 09/28/19 06:10 Alkaline Phosphatase 69 U/L (45-117) 09/28/19 06:10 Creatine Kinase 132 U/L (26-192) 09/28/19 06:10 Troponin I < 0.02 ng/ml (0.00-0.05) 09/28/19 06:10 Total Protein 7.7 g/dl (6.4-8.2) 09/28/19 06:10 Albumin 3.8 g/dl (3.4-5.0) 09/28/19 06:10 TSH 2.16 uIU/ml (0.358-3.74) 09/28/19 06:10 Free T4 0.87 ng/dl (0.76-1.46) 09/28/19 06:10 Urine Color Yellow 09/28/19 05:55 Urine Appearance Cloudy 09/28/19 05:55 Urine pH 7.0 (5.0-8.0) 09/28/19 05:55 Ur Specific [place] 1.010 (1.010-1.035) 09/28/19 05:55 Urine Protein Negative (NEGATIVE) 09/28/19 05:55 Urine Glucose (UA) Negative (NEGATIVE) 09/28/19 05:55 Urine Ketones Negative (NEGATIVE) 09/28/19 05:55 Urine Blood Negative (NEGATIVE) 09/28/19 05:55 Urine Nitrite Negative (NEGATIVE) 09/28/19 05:55 Urine Bilirubin Negative (NEGATIVE) 09/28/19 05:55 Urine Urobilinogen 0.2 mg/dL (0.2-1.0) 09/28/19 05:55 Ur Leukocyte Esterase 3+ (NEGATIVE) H 09/28/19 05:55 Urine WBC (Auto) 75 /hpf (0-5) 09/28/19 05:55 Urine RBC (Auto) 4.4 /hpf (0-4) 09/28/19 05:55 Urine Casts (Auto) 4 /lpf (0-8) 09/28/19 05:55 U Epithel Cells (Auto) 11.5 /HPF (0-5/HPF) 09/28/19 05:55 Urine Bacteria (Auto) 296.3 /hpf (NEGATIVE) 09/28/19 05:55 Urine HCG, Qual Negative 09/28/19 05:55 Opiates Screen Negative ng/ml (FGUMDF=504) 09/28/19 05:55 Methadone Screen Positive ng/ml (DGPFQD=335) A* 09/28/19 05:55 Barbiturate Screen Negative ng/ml (TSSOKS=130) 09/28/19 05:55 Phencyclidine Screen Negative ng/ml (CUTOFF=25) 09/28/19 05:55 Ur Amphetamines Screen Negative ng/ml (UVRBTK=425) 09/28/19 05:55 MDMA (Ecstasy) Screen Negative ng/ml (ZQZLWN=519) 09/28/19 05:55 Benzodiazepines Screen Negative ng/ml (PHMUZA=512) 09/28/19 05:55 Cocaine Screen Negative ng/ml (MACZZI=409) 09/28/19 05:55 U Marijuana (THC) Screen Negative ng/ml (CUTOFF=50) 09/28/19 05:55 Influenza A (Rapid) Negative (Negative) 09/28/19 06:31 Influenza B (Rapid) Negative (Negative) 09/28/19 06:31 Discharge - Discharge Information Problems reviewed: Yes Clinical Impression/Diagnosis: UTI (urinary tract infection), Palpitations Condition: Stable Disposition: HOME - Additional Discharge Information Prescriptions: Nitrofurantoin Monohyd/M-Cryst [Macrobid -] 100 mg PO BID 5 Days #10 capsule - Follow up/Referral Referrals: Blair Lockett MD [Primary Care Provider] - Santiago Mccormack MD [Staff Physician] - Sandeep Cook MD [Staff Physician] - Reginaldo Gardner MD [Non Staff, Medical] - Hannah Padron MD [Staff Physician] - - Patient Discharge Instructions Patient Printed Discharge Instructions: DI for Urinary Tract Infection (UTI), DI for Palpitations Additional Instructions: You have been seen in the Emergency Department. You have a UTI (urinary tract infection). We have sent antibiotics to your pharmacy - take as prescribed. We have also given you multiple referrals to Endocrinologists for follow-up for your metabolic syndrome and weight gain. Your TSH value here was normal. Follow-up with your primary care doctor within 1 week. Return to the Emergency Department immediately if you experience any new or concerning symptoms including chest pain, difficulty breathing, vomiting, or fever. - Post Discharge Activity Work/Back to School Note: Back to Work
[2019-09-28] MEDS ORDERED: SODIUM CHLORIDE 1,000 ML IV STA (05:59)
[2019-09-28 06:01] VITALS: TEMP 98.1; BMI 33.3
--- NOTE | 2019-09-28 06:02 | PDOC ---
Attending Attestation - Resident Resident Name: Bria Gil - ED Attending Attestation I have performed the following: I have examined & evaluated the patient, The case was reviewed & discussed with the resident, I agree w/resident's findings & plan - HPI HPI: 09/28/19 06:10 Pt comes for systemic weakness and weight gain States that she had a tingly feeling from her toes up to her head, associated with palpitations. She has DM that may or may not be well controlled. She is on glucophage 1g BID and she is on methadone 108mg Pt has aremote hx of hasthimoto' s thyroiditis. She has not had any other medical problems. Pt is obese. - Physicial Exam PE: 09/28/19 06:10 Agree with resident exam 09/28/19 19:55 Exam is normal. No palpitations at this time - Medical Decision Making 09/28/19 19:55 Labs EKG and everything pending, and pt was signed out to the AM ER doc
--- NOTE | 2019-09-28 07:05 | PDOC ---
*Physical Exam - Vital Signs Last Vital Signs Temp Pulse Resp BP Pulse Ox 98.1 F 94 H 15 129/74 100 09/28/19 05:15 09/28/19 05:15 09/28/19 05:15 09/28/19 05:15 09/28/19 05:15 ED Treatment Course - LABORATORY CBC & Chemistry Diagram: 09/28/19 06:10 09/28/19 06:10 - Medications Given in the ED: ED Medications Discontinued Medications Generic Name Dose Route Start Last Admin Trade Name Freq PRN Reason Stop Dose Admin Sodium Chloride 1,000 mls @ 1,000 mls/hr 09/28/19 05:59 09/28/19 06:15 Normal Saline - IV 09/28/19 06:58 1,000 mls/hr ASDIR STA Administration Medical Decision Making - Medical Decision Making 09/28/19 08:38 Received sign out from Dr Gil. 24 year old female with PMH gary's thyroiditis, NIDDM, Metabolic Syndrome presented to ED for palpitations occurring for a month, worsening in the last two days, in addition to lightheadedness, generalized weakness, and sinus congestion. Pt seen and assessed at bedside, pt feels better s/p IVF, asymptomatic at this time. EKG reviewed - no concerning findings Labs reviewed. TSH WNL. Only notable for UTI. Pt denies dysuria or urgency. Endorses urinary frequency x6mo, treated for UTI with macrobid 6mo ago. No SOB, cough, or chest pain, and lungs CTAB, no CXR needed. Will discharge home with PCP and endocrine f/u and macrobid rx. Return precautions given. Pt understands all discharge instructions and all questions were answered. Discharge - Discharge Information Problems reviewed: Yes Clinical Impression/Diagnosis: UTI (urinary tract infection), Palpitations Condition: Stable Disposition: HOME - Admission No - Additional Discharge Information Prescriptions: Nitrofurantoin Monohyd/M-Cryst [Macrobid -] 100 mg PO BID 5 Days #10 capsule - Follow up/Referral Referrals: Blair Lockett MD [Primary Care Provider] - Sandeep Cook MD [Staff Physician] - Reginaldo Gardner MD [Non Staff, Medical] - Hannah Padron MD [Staff Physician] - Santiago Mccormack MD [Staff Physician] - - Patient Discharge Instructions Patient Printed Discharge Instructions: DI for Urinary Tract Infection (UTI), DI for Palpitations Additional Instructions: You have been seen in the Emergency Department. You have a UTI (urinary tract infection). We have sent antibiotics to your pharmacy - take as prescribed. We have also given you multiple referrals to Endocrinologists for follow-up for your metabolic syndrome and weight gain. Your TSH value here was normal. Follow-up with your primary care doctor within 1 week. Return to the Emergency Department immediately if you experience any new or concerning symptoms including chest pain, difficulty breathing, vomiting, or fever. - Post Discharge Activity Work/Back to School Note: Back to Work
[2019-09-28 07:18] LABS: BASO % 0.6 % (0-2.0); EOS % 1.5 % (0-4.5); HEMOGLOBIN 13.4 GM/dL (10.7-15.3); LYMPH % 22.9 % (8-40); MCH 28.5 pg (25.7-33.7); MCHC 34.5 g/dl (32.0-36.0); MEAN CELL VOLUME 82.5 fl (80-96); MEAN PLT VOLUME 8.1 fl (7.5-11.1); MONO % 6.9 % (3.8-10.2); NEUT % 68.1 % (42.8-82.8); PLATELET COUNT 289 K/MM3 (134-434); RBC 4.72 M/mm3 (3.60-5.2); RDW 13.4 % (11.6-15.6); WHITE BLOOD COUNT 8.1 K/mm3 (4.0-10.0)
--- NOTE | 2019-09-28 07:18 | PDOC ---
*Physical Exam - Vital Signs Last Vital Signs Temp Pulse Resp BP Pulse Ox 98.1 F 94 H 15 129/74 100 09/28/19 05:15 09/28/19 05:15 09/28/19 05:15 09/28/19 05:15 09/28/19 05:15 - Physical Exam 09/28/19 07:39 Gen: sleeping, easily arousable, nad heent: nares congested, posterior pharynx with mild erythema- post nasal gtt, no exudates neck: supple heart: +s1s2 reg lungs: cta b/l abd: soft, nt/nd +bs ext: no c/c/e ED Treatment Course - LABORATORY CBC & Chemistry Diagram: 09/28/19 06:10 09/28/19 06:10 - Medications Given in the ED: ED Medications Discontinued Medications Generic Name Dose Route Start Last Admin Trade Name Freq PRN Reason Stop Dose Admin Sodium Chloride 1,000 mls @ 1,000 mls/hr 09/28/19 05:59 09/28/19 06:15 Normal Saline - IV 09/28/19 06:58 1,000 mls/hr ASDIR STA Administration Medical Decision Making - Medical Decision Making 09/28/19 07:39 a/p: 24yo female with palpitations, nasal congestion, dysuria, dm -pt signed out pending labs -pt complains of intermittnet dysuria -no fevers -flu neg, cbc reviewed and no elevated wbc -chem pending -UA + uti, will start macrobid -pt currently receiving ivf hydration, feeling better -will continue to monitor and reassess 09/28/19 07:42 trop neg chem reviewed pending thyroid 09/28/19 08:15 thyroid normal 09/28/19 08:36 pt feeling better no cough/congestion will dc home with abx for uti Discharge - Discharge Information Problems reviewed: Yes Clinical Impression/Diagnosis: UTI (urinary tract infection) Condition: Stable Disposition: HOME - Admission No - Follow up/Referral Referrals: Blair Lockett MD [Primary Care Provider] - - Patient Discharge Instructions - Post Discharge Activity
[2019-09-28 07:26] LABS: EPI CELLS 11.5 /HPF (0-5/HPF); HYALINE CASTS 4 /lpf (0-8); URINE APPEARANCE CLOUDY; URINE BACTERIA 296.3 /hpf (NEGATIVE); URINE BILIRUBIN NEGATIVE (NEGATIVE); URINE COLOR YELLOW; URINE GLUCOSE (UA) NEGATIVE (NEGATIVE); URINE KETONE NEGATIVE (NEGATIVE); URINE LEUK ESTERASE 3+ (NEGATIVE); URINE NITRITE NEGATIVE (NEGATIVE); URINE PROTEIN NEGATIVE (NEGATIVE); URINE UROBILINOGEN 0.2 mg/dL (0.2-1.0); URINE WBC 75 /hpf (0-5)
[2019-09-28 07:36] LABS: COCAINE, UR NEGATIVE ng/ml (CUTOFF=300); OPIATES, URI NEGATIVE ng/ml (CUTOFF=300); PHENCYCLIDINE,URINE NEGATIVE ng/ml (CUTOFF=25); URINE AMPHETAMINES NEGATIVE ng/ml (CUTOFF=500); URINE BARBITURATES NEGATIVE ng/ml (CUTOFF=200); URINE BENZODIAZEPINES NEGATIVE ng/ml (CUTOFF=200)
[2019-09-28 07:40] LABS: ALBUMIN 3.8 g/dl (3.4-5.0); BILIRUBIN,TOTAL 0.5 mg/dL (0.2-1); BLOOD UREA NITROGEN 11.2 mg/dL (7-18); CREATININE 1.1 mg/dL (0.55-1.3); MAGNESIUM 1.9 mg/dL (1.8-2.4); PHOSPHOROUS 2.7 mg/dL (2.5-4.9); POTASSIUM 4.2 mmol/L (3.5-5.1); TOT PROT 7.7 g/dl (6.4-8.2)
[2019-09-28] MEDS ORDERED: NITROFURANTOIN MACROCRYSTAL 50 MG CAPSULE (FP) PO SCH (07:45)
[2019-09-28] MEDS ORDERED: NITROFURANTOIN MACROCRYSTAL 50 MG CAPSULE (FP) ONE (07:54)
[2019-09-28 08:07] LABS: METHADONE, UR POSITIVE ng/ml (CUTOFF=300)
--- NOTE | 2019-09-28 08:07 | PDOC ---
*Physical Exam - Vital Signs Last Vital Signs Temp Pulse Resp BP Pulse Ox 98.1 F 94 H 15 129/74 100 09/28/19 05:15 09/28/19 05:15 09/28/19 05:15 09/28/19 05:15 09/28/19 05:15 ED Treatment Course - LABORATORY CBC & Chemistry Diagram: 09/28/19 06:10 09/28/19 06:10 - ADDITIONAL ORDERS Additional order review: Laboratory Results 09/28/19 09/28/19 09/28/19 06:10 06:10 06:10 Sodium 136 Potassium 4.2 Chloride 103 Carbon Dioxide 27 Anion Gap 7 L BUN 11.2 Creatinine 1.1 Est GFR (CKD-EPI)AfAm 81.95 Est GFR (CKD-EPI)NonAf 70.71 Random Glucose 104 Calcium 9.0 Phosphorus 2.7 Magnesium 1.9 Total Bilirubin 0.5 AST 20 ALT 22 Alkaline Phosphatase 69 Creatine Kinase 132 Troponin I < 0.02 Total Protein 7.7 Albumin 3.8 TSH 2.16 Free T4 0.87 Urine Color Urine Appearance Urine pH Ur Specific [place] Urine Protein Urine Glucose (UA) Urine Ketones Urine Blood Urine Nitrite Urine Bilirubin Urine Urobilinogen Ur Leukocyte Esterase Urine WBC (Auto) Urine Casts (Auto) U Epithel Cells (Auto) Urine Bacteria (Auto) Urine HCG, Qual Opiates Screen Barbiturate Screen Phencyclidine Screen Ur Amphetamines Screen MDMA (Ecstasy) Screen Benzodiazepines Screen Cocaine Screen U Marijuana (THC) Screen 09/28/19 09/28/19 09/28/19 05:55 05:55 05:55 Sodium Potassium Chloride Carbon Dioxide Anion Gap BUN Creatinine Est GFR (CKD-EPI)AfAm Est GFR (CKD-EPI)NonAf Random Glucose Calcium Phosphorus Magnesium Total Bilirubin AST ALT Alkaline Phosphatase Creatine Kinase Troponin I Total Protein Albumin TSH Free T4 Urine Color Yellow Urine Appearance Cloudy Urine pH 7.0 Ur Specific [place] 1.010 Urine Protein Negative Urine Glucose (UA) Negative Urine Ketones Negative Urine Blood Negative Urine Nitrite Negative Urine Bilirubin Negative Urine Urobilinogen 0.2 Ur Leukocyte Esterase 3+ H Urine WBC (Auto) 75 Urine Casts (Auto) 4 U Epithel Cells (Auto) 11.5 Urine Bacteria (Auto) 296.3 Urine HCG, Qual Negative Opiates Screen Negative Barbiturate Screen Negative Phencyclidine Screen Negative Ur Amphetamines Screen Negative MDMA (Ecstasy) Screen Negative Benzodiazepines Screen Negative Cocaine Screen Negative U Marijuana (THC) Screen Negative 09/28/19 06:10 RBC 4.72 MCV 82.5 MCHC 34.5 RDW 13.4 D MPV 8.1 Neutrophils % 68.1 Lymphocytes % 22.9 D Monocytes % 6.9 Eosinophils % 1.5 D Basophils % 0.6 - Medications Given in the ED: ED Medications Discontinued Medications Generic Name Dose Route Start Last Admin Trade Name Freq PRN Reason Stop Dose Admin Sodium Chloride 1,000 mls @ 1,000 mls/hr 09/28/19 05:59 09/28/19 06:15 Normal Saline - IV 09/28/19 06:58 1,000 mls/hr ASDIR STA Administration Medical Decision Making - Medical Decision Making 09/28/19 08:06 24 y/o female here with one month h/o 1-2 episodes of feeling lightheaded and full body tingling. Episodes normally occurring 1-2x weekly however she had 5 episodes yesterday prompting her to come to the ED Discharge - Follow up/Referral Referrals: Blair Lockett MD [Primary Care Provider] - - Patient Discharge Instructions - Post Discharge Activity
[2019-09-28 09:13] VITALS: BP 128/72; PULSE 85
--- NOTE | 2019-09-28 12:01 | EKG ---
Test Reason : Blood Pressure : / mmHG Vent. Rate : 075 BPM Atrial Rate : 075 BPM P-R Int : 188 ms QRS Dur : 084 ms QT Int : 382 ms P-R-T Axes : 042 051 029 degrees QTc Int : 426 ms NORMAL SINUS RHYTHM NORMAL ECG WHEN COMPARED WITH ECG OF 15-JAN-2018 12:50, NO SIGNIFICANT CHANGE WAS FOUND Confirmed by BALA BEE MD ([id number]) on 09/28/2019 12:01:23 PM Referred By: Confirmed By:BALA BEE MD
[2019-09-28 15:15] LABS: URINE RBC 4.4 /hpf (0-4)
== END 2019-09-28 09:00 | disposition home or self-care (01) ==
LOC: JER 05:12
PROC: 3E0337Z Introduction of Electrolytic and Water Balance Substance into Peripheral Vein, Percutaneous Approach (ICD-10-PCS; principal; 2019-09-28)
DX: N39.0 Urinary tract infection, site not specified (principal); R00.2 Palpitations; E06.3 Autoimmune thyroiditis; E11.9 Type 2 diabetes mellitus without complications; Z79.4 Long term (current) use of insulin; F11.20 Opioid dependence, uncomplicated; R63.5 Abnormal weight gain; Z68.33 Body mass index [BMI] 33.0-33.9, adult
CPT/HCPCS: 36415; 80053; 80307; 81003; 82550; 83735; 84100; 84439; 84443; 84484; 84703; 85025; 87086; 87804; 93005; 93010; 96360; 99284-25; J7030

== ENCOUNTER 2020-02-23 19:11 | Emergency (ER) | payer OTHER ==
[2020-02-23 19:20] VITALS: BP 123/75; PULSE 75; TEMP 98.7; BMI 34.9
--- NOTE | 2020-02-23 19:24 | PDOC ---
Rapid Medical Evaluation Chief Complaint: Ear Problem Time Seen by Provider: 02/23/20 19:19 Medical Evaluation: Allergies Allergy/AdvReac Type Severity Reaction Status Date / Time Penicillins Allergy Swelling Verified 10/13/19 13:48 Vital Signs Temp Pulse Resp BP Pulse Ox 98.7 F 75 18 123/75 100 02/23/20 19:15 02/23/20 19:15 02/23/20 19:15 02/23/20 19:15 02/23/20 19:15 02/23/20 19:20 24 year old female c/o ear pain and full with nasal drainage, denies fever. PE; patient alert ox3. + nasal congestion A: ear pain P: patient to the ER for further management. Discharge Disposition - Diagnosis Ear pain Qualifiers: Laterality: bilateral Qualified Code(s): H92.03 - Otalgia, bilateral - Referrals - Patient Instructions - Post Discharge Activity
--- NOTE | 2020-02-23 20:12 | PDOC ---
History of Present Illness - General Chief Complaint: Ear Problem Stated Complaint: EAR PAIN/DIZZINESS Time Seen by Provider: 02/23/20 19:19 History Source: Patient Exam Limitations: No Limitations - History of Present Illness Initial Comments: 02/23/20 20:09 HISTORY OF PRESENT ILLNESS: 24-year-old woman with past medical history of sinusitis presents emergency department for evaluation of sensation of clogged ears bilaterally, thick nasal discharge and frontal headache over the past 3 days. Patient reports her symptoms are consistent with her usual sinus infections. Patient is unable to secure an appointment with her primary doctor therefore came to the emergency department for evaluation. She denies any fevers, chills, sore throats, cough, shortness of breath. No recent travel or sick contacts. PAST MEDICAL HISTORY: See HPI SURGICAL HISTORY: Denies ALLERGIES: Penicillin REVIEW OF SYSTEMS General/Constitutional: Denies fever or chills. Denies weakness, weight change. HEENT: See HPI Cardiovascular: Denies chest pain or shortness of breath. Respiratory: Denies cough, wheezing, or hemoptysis. Gastrointestinal: Denies nausea, vomiting, diarrhea or constipation. Denies rectal bleeding. Genitourinary: Denies dysuria, frequency, or change in urination. Musculoskeletal: Denies joint or muscle swelling or pain. Denies neck or back pain. Skin and breasts: Denies rash or easy bruising. Neurologic: Denies headache, vertigo, loss of consciousness, or loss of sensation. Psychiatric: Denies depression or anxiety. Endocrine: Denies increased thirst. Denies abnormal weight change. Hematologic/Lymphatic: Denies anemia, easy bleeding, or history of blood clots. Allergic/Immunologic: Denies hives or skin allergy. Denies latex allergy. PHYSICAL EXAM General Appearance: Well-appearing, appropriately dressed. No apparent distress, no intoxication. HEENT: EOMI, PERRLA, normal ENT inspection, normal voice, TMs retracted bilaterally, pharynx normal. No conjunctival pallor. No photophobia, scleral icterus. Tenderness to frontal sinuses which relieved her symptoms. Neck: Supple. Trachea midline. No tenderness, rigidity, carotid bruit, stridor, lymphadenopathy, or thyromegaly. Respiratory/Chest: Lungs CTAB. No shortness of breath, chest tenderness, respiratory distress, accessory muscle use. No crackles, rales, rhonchi, stridor, wheezing, dullness Cardiovascular: RRR. S1, S2. No JVD, murmur, bradycardia, tachycardia. Past History - Medical History Allergies/Adverse Reactions: Allergies Allergy/AdvReac Type Severity Reaction Status Date / Time Penicillins Allergy Swelling Verified 02/23/20 19:19 Home Medications: Ambulatory Orders Acetaminophen [Tylenol .Regular Strength -] 650 mg PO Q3H PRN tablet 09/28/18 Methadone [Dolophine -] 120 mg PO DAILY@0600 #1 tablet MDD 120 mg 09/28/18 Metformin HCl [Glucophage] 1,000 mg PO DAILY 10/13/19 Azithromycin [Zithromax 250mg Tablets -] 250 mg PO UTDICT #6 tab 02/23/20 Anemia: Yes (was on iron) Asthma: No Cancer: No Cardiac Disorders: No CVA: No COPD: No CHF: No Dementia: No Diabetes: No GI Disorders: No Disorders: No HTN: No Hypercholesterolemia: No Kidney Stones: No Liver Disease: No Seizures: No Thyroid Disease: No - Reproductive History PID: No - Psycho-Social/Smoking History Smoking Status: Yes Smoking History: Never smoked Have you smoked in the past 12 months: No Number of Cigarettes Smoked Daily: 6 If you are a former smoker, when did you quit?: at age 18 Information on smoking cessation initiated: No 'Breaking Loose' booklet given: 08/11/14 - Substance Abuse Hx (Audit-C & DAST Scrn) How often the patient has a drink containing alcohol: Never Score: In Men: 4 or > Positive; In Women: 3 or > Positive: 0 Screen Result (Pos requires Nsg. Audit-10AR): Negative In the last yr the pt used illegal drug/Rx for NonMed reason: No Score: Yes response is considered Positive: 0 Screen Result (Positive result requires Nsg. DAST-10): Negative *Physical Exam - Vital Signs Last Vital Signs Temp Pulse Resp BP Pulse Ox 98.7 F 75 18 123/75 100 02/23/20 19:15 02/23/20 19:15 02/23/20 19:15 02/23/20 19:15 02/23/20 19:15 Medical Decision Making - Medical Decision Making 02/23/20 20:12 A/P: 24-year-old woman with 3 days of upper respiratory type symptoms Frontal sinuses tender to light palpation which made her symptoms improve TMs retracted bilaterally Oropharynx minimally erythematous without tonsillar swelling or exudates present Patient most likely with sinusitis. As patient is unable to secure an appoint with her primary doctor I will prophylactically treat with azithromycin as patient is allergic to penicillins. Patient has been instructed in [id number] remedies is verbalized understanding. Discharge home Discharge - Discharge Information Problems reviewed: Yes Clinical Impression/Diagnosis: Sinusitis Qualifiers: Sinusitis location: frontal Chronicity: acute Recurrence: not specified as recurrent Qualified Code(s): J01.10 - Acute frontal sinusitis, unspecified Condition: Stable Disposition: HOME - Admission No - Additional Discharge Information Prescriptions: Azithromycin [Zithromax 250mg Tablets -] 250 mg PO UTDICT #6 tab - Follow up/Referral Referrals: Jerson Hendrix MD [Primary Care Provider] - - Patient Discharge Instructions Additional Instructions: Rest, drink lots of fluids: Teas, water, soups, Pedialyte Saltwater gargles Steamy showers/seem to face break up mucus Avoid contact with others until fevers and cough resolved Lots of handwashing and good hygiene Continue [id number] medications for symptomatic relief Tylenol or Motrin for fever and pain Take azithromycin as instructed Followup with private physician in one to 2 days as needed Return to emergency department for worsened symptoms, fevers, dehydration - Post Discharge Activity
[2020-02-23] MEDS ORDERED: PSEUDOEPHEDRINE HCL 30 MG TABLET PO ONE (20:31)
[2020-02-23] MEDS ORDERED: PSEUDOEPHEDRINE HCL 60 MG TABLET ONE (20:37)
== END 2020-02-23 20:43 | disposition home or self-care (01) ==
LOC: JERFT 19:11 → JER 19:11 → JERFT 20:43
DX: H92.03 Otalgia, bilateral (principal); J01.10 Acute frontal sinusitis, unspecified
CPT/HCPCS: 99282-25

== ENCOUNTER 2020-02-25 19:55 | Emergency (ER) | payer OTHER ==
[2020-02-25] MEDS ORDERED: SODIUM CHLORIDE 1,000 ML IV STA ×2 (20:08→22:47)
[2020-02-25] MEDS ORDERED: MECLIZINE HCL 25 MG TABLET (FP) PO ONE (20:08)
--- NOTE | 2020-02-25 20:08 | PDOC ---
Rapid Medical Evaluation Time Seen by Provider: 02/25/20 20:05 Medical Evaluation: Allergies Allergy/AdvReac Type Severity Reaction Status Date / Time Penicillins Allergy Swelling Verified 02/23/20 19:19 02/25/20 20:06 I have performed a brief in-person evaluation of this patient. CC: dizziness with 1 episode of NBNB vomiting PE: Neuro grossly normal. Patchy flesh colored rash to right jawline. Orders: meclizine, IVF, labs, urine Patient to proceed to ED for further evaluation. Discharge Disposition - Diagnosis Dizziness - Referrals - Patient Instructions - Post Discharge Activity
[2020-02-25 20:09] VITALS: BMI 33.3
[2020-02-25] MEDS ORDERED: MECLIZINE HCL 25 MG TABLET (FP) ONE (20:51)
[2020-02-25] MEDS ORDERED: PANTOPRAZOLE SODIUM 40 MG VIAL IVPUSH ONE ×2 (20:59→22:30)
[2020-02-25] MEDS ORDERED: ONDANSETRON 4 MG/2 ML VIAL IVPUSH ONE (20:59)
[2020-02-25] MEDS ORDERED: MAG HYDROX/AL HYDROX/SIMETH 30 ML UNIT-DOSE CUP PO ONE (20:59)
[2020-02-25] MEDS ORDERED: MAG HYDROX/AL HYDROX/SIMETH 30 ML UNIT-DOSE CUP ONE (21:00)
[2020-02-25] MEDS ORDERED: FAMOTIDINE 20 MG/50 ML IVPB 20 MG/50 ML MG IVPB ONE ×2 (21:00→21:55)
--- NOTE | 2020-02-25 21:28 | PDOC ---
History of Present Illness - General Chief Complaint: Nausea/Vomiting Stated Complaint: HEADACHE Time Seen by Provider: 02/25/20 20:05 History Source: Patient Exam Limitations: No Limitations - History of Present Illness Initial Comments: 02/25/20 21:23 24-year-old female no significant past medical history presents to the ED with 2 days of upset stomach dizziness and one episode of nonbilious nonbloody vomiting. Patient was seen in the ED 2 days ago and discharged with azit hromycin for sinus infection. After taking 1 dose of azithromycin patient developed a rash on her right lower jawline as well as became nauseous. Patient states that she continued to take zpak despite the nausea but the symptoms progressively became worse. Patient describes the dizziness as room spinning. And abdominal pain as crampy. Pt otherwise denies: fevers, chills, syncope, lightheadedness, headaches, neck pain, chest pain, shortness of breath, palpitations, back pain, diarrhea, constipation. Past History - Medical History Allergies/Adverse Reactions: Allergies Allergy/AdvReac Type Severity Reaction Status Date / Time Penicillins Allergy Swelling Verified 02/23/20 19:19 Home Medications: Ambulatory Orders Acetaminophen [Tylenol .Regular Strength -] 650 mg PO Q3H PRN tablet 09/28/18 Methadone [Dolophine -] 120 mg PO DAILY@0600 #1 tablet MDD 120 mg 09/28/18 Metformin HCl [Glucophage] 1,000 mg PO DAILY 10/13/19 Azithromycin [Zithromax 250mg Tablets -] 250 mg PO UTDICT #6 tab 02/23/20 Anemia: Yes (was on iron) Asthma: No Cancer: No Cardiac Disorders: No CVA: No COPD: No CHF: No Dementia: No Diabetes: No GI Disorders: No Disorders: No HTN: No Hypercholesterolemia: No Kidney Stones: No Liver Disease: No Seizures: No Thyroid Disease: No - Reproductive History PID: No - Psycho-Social/Smoking History Smoking Status: Yes Smoking History: Never smoked Have you smoked in the past 12 months: No Number of Cigarettes Smoked Daily: 6 If you are a former smoker, when did you quit?: at age 18 'Breaking Loose' booklet given: 08/11/14 - Substance Abuse Hx (Audit-C & DAST Scrn) How often the patient has a drink containing alcohol: Never Score: In Men: 4 or > Positive; In Women: 3 or > Positive: 0 Screen Result (Pos requires Nsg. Audit-10AR): Negative In the last yr the pt used illegal drug/Rx for NonMed reason: No Score: Yes response is considered Positive: 0 Screen Result (Positive result requires Nsg. DAST-10): Negative *Physical Exam - Vital Signs Last Vital Signs Temp Pulse Resp BP Pulse Ox 98.6 F 82 19 131/90 100 02/25/20 20:06 02/25/20 20:06 02/25/20 20:06 02/25/20 20:06 02/25/20 20:06 - Physical Exam 02/25/20 21:26 Gen: AAOx 3, no acute distress, comfortable, no signs of respiratory distress HENT: atraumatic, normocephalic with no laceration or contusion. Nasal mucosa without erythema. Oropharynx without erythema or exudates. Mucous membranes moist. EYES: PERRL, EOM intact, conjunctiva pink NECK: supple; trachea midline; no JVD, no lymphadenopathy, or thyromegaly CV: RRR no murmurs, gallops, or rubs. CHEST: CTA b/l no wheezing, rales or rhonchi ABD: +BS/ND. TTP thoughout all 4 quadrants; soft, no rebound, voluntary guarding EXTREMITY: no cyanosis or erythema. 2+ dorsalis pedis, posterior tibial, and radial pulse. No pedal edema; no calf swelling or tenderness SKIN: patchy erythmatous rash to R jawline , warm and dry, no diaphoresis HEME: no purpura or ecchymosis NEURO: normal speech, CN II-XII intact, sensation intact, normal gait, no cerebellar deficits MS: 5/5 strength in all extremities, FROM intact in all extremities. ED Treatment Course - LABORATORY CBC & Chemistry Diagram: 02/25/20 21:07 02/25/20 21:07 - ADDITIONAL ORDERS Additional order review: Laboratory Results 02/25/20 20:48 POC Glucometer 101 02/25/20 20:48 POC Glucometer 101 Medical Decision Making - Medical Decision Making 02/25/20 21:26 24-year-old female 2 days nausea vomiting dizziness. Actively vomiting in the emergency room Vital signs stable Will administer Zofran Maalox meclizine and Protonix for symptomatic relief Will obtain labs and EKG Will reassess based on results EKG NSR Labs WNL Pt is still persistently vomiting in the ED and complaining of HENDERSON Reglan, Benadryl and Protonix ordered Due to shift change pt signed out to FRANNIE Rivas pending meds and reassessment 02/25/20 22:37 Discharge - Discharge Information Problems reviewed: Yes Clinical Impression/Diagnosis: Dizziness - Follow up/Referral - Patient Discharge Instructions - Post Discharge Activity
[2020-02-25 21:37] LABS: BASO % 0.7 % (0-2.0); EOS % 0.2 % (0-4.5); HEMATOCRIT 39.2 % (32.4-45.2); LYMPH % 24.8 % (8-40); MCHC 33.2 g/dl (32.0-36.0); MEAN CELL VOLUME 84.5 fl (80-96); MEAN PLT VOLUME 7.6 fl (7.5-11.1); MONO % 5.2 % (3.8-10.2); NEUT % 69.1 % (42.8-82.8); PLATELET COUNT 331 K/MM3 (134-434); RBC 4.64 M/mm3 (3.60-5.2); RDW 14.4 % (11.6-15.6); WHITE BLOOD COUNT 7.2 K/mm3 (4.0-10.0)
[2020-02-25 22:23] LABS: ALBUMIN 4.2 g/dl (3.4-5.0); ALK PHOS 55 U/L (45-117); ANION GAP 7 MMOL/L (8-16); BILIRUBIN,TOTAL 0.4 mg/dL (0.2-1); BLOOD UREA NITROGEN 8.4 mg/dL (7-18); CALCIUM 9.5 mg/dL (8.5-10.1); CHLORIDE 107 mmol/L (98-107); CO2 24 mmol/L (21-32); CREATININE 1.1 mg/dL (0.55-1.3); LIPASE 151 U/L (73-393); POTASSIUM 3.8 mmol/L (3.5-5.1); SGOT/AST 13 U/L (15-37); SGPT/ALT 18 U/L (13-61); SODIUM 138 mmol/L (136-145); TOT PROT 8.3 g/dl (6.4-8.2)
[2020-02-25] MEDS ORDERED: METOCLOPRAMIDE HCL INJECTION 10 MG/2 ML VIAL IVPUSH ONE (22:30)
[2020-02-25 22:35] LABS: GLUCOSE,RANDOM 119 mg/dL (74-106)
[2020-02-25] MEDS ORDERED: METOCLOPRAMIDE HCL INJECTION 10 MG/2 ML VIAL ONE (22:56)
[2020-02-25] MEDS ORDERED: PANTOPRAZOLE SODIUM 40 MG VIAL ONE (22:57)
[2020-02-25] MEDS ORDERED: LORazepam 2 MG/ML SDV VIAL ONE (22:57)
--- NOTE | 2020-02-26 00:13 | PDOC ---
*Physical Exam - Vital Signs Last Vital Signs Temp Pulse Resp BP Pulse Ox 98.3 F 62 20 132/82 100 02/25/20 20:35 02/25/20 20:35 02/25/20 20:35 02/25/20 20:35 02/25/20 20:35 - Physical Exam General Appearance: Yes: Appropriately Dressed. No: Apparent Distress Gastrointestinal/Abdominal: positive: Normal Bowel Sounds, Soft. negative: Tender, Guarding, Rebound, Tenderness, Hernia ED Treatment Course - LABORATORY CBC & Chemistry Diagram: 02/25/20 21:07 02/25/20 21:07 - ADDITIONAL ORDERS Additional order review: Laboratory Results 02/25/20 02/25/20 21:07 20:48 Sodium 138 Potassium 3.8 Chloride 107 Carbon Dioxide 24 Anion Gap 7 L BUN 8.4 Creatinine 1.1 Est GFR (CKD-EPI)AfAm 81.95 Est GFR (CKD-EPI)NonAf 70.71 POC Glucometer 101 Random Glucose 119 H Calcium 9.5 Total Bilirubin 0.4 AST 13 L ALT 18 Alkaline Phosphatase 55 Total Protein 8.3 H Albumin 4.2 Lipase 151 Beta HCG, Quant < 1.0 02/25/20 02/25/20 21:07 20:48 RBC 4.64 MCV 84.5 MCHC 33.2 RDW 14.4 MPV 7.6 Neutrophils % 69.1 Lymphocytes % 24.8 Monocytes % 5.2 Eosinophils % 0.2 D Basophils % 0.7 POC Glucometer 101 - Medications Given in the ED: ED Medications Discontinued Medications Generic Name Dose Route Start Last Admin Trade Name Freq PRN Reason Stop Dose Admin Al Hydroxide/Mg Hydroxide 30 ml 02/25/20 20:59 02/25/20 21:26 Mylanta Oral Suspension - PO 02/25/20 21:00 30 ml ONCE ONE Administration Diphenhydramine HCl 50 mg 02/25/20 22:30 02/25/20 23:21 Benadryl Injection - IVPUSH 02/25/20 22:31 50 mg ONCE ONE Administration Sodium Chloride 1,000 mls @ 1,000 mls/hr 02/25/20 20:08 02/25/20 21:25 Normal Saline - IV 02/25/20 21:07 1,000 mls/hr ASDIR STA Administration Famotidine/Sodium Chloride 20 mg in 50 mls @ 100 mls/hr 02/25/20 21:55 02/25/20 22:04 Pepcid 20 Mg Premixed Ivpb - IVPB 02/25/20 22:24 100 mls/hr ONCE ONE Administration Sodium Chloride 1,000 mls @ 1,000 mls/hr 02/25/20 22:47 02/25/20 23:21 Normal Saline - IV 02/25/20 23:46 1,000 mls/hr ASDIR STA Administration Lorazepam 1 mg 02/25/20 22:46 02/25/20 23:21 Ativan Injection - IVPUSH 02/25/20 22:47 1 mg ONCE ONE Administration Meclizine HCl 25 mg 02/25/20 20:08 02/25/20 21:25 Antivert - PO 02/25/20 20:09 25 mg ONCE ONE Administration Metoclopramide HCl 10 mg 02/25/20 22:30 02/25/20 23:21 Reglan Injection - IVPUSH 02/25/20 22:31 10 mg ONCE ONE Administration Ondansetron HCl 4 mg 02/25/20 20:59 02/25/20 21:26 Zofran Injection IVPUSH 02/25/20 21:00 4 mg ONCE ONE Administration Pantoprazole Sodium 40 mg 02/25/20 20:59 02/25/20 22:04 Protonix Iv IVPUSH 02/25/20 21:00 Not Given ONCE ONE Pantoprazole Sodium 40 mg 02/25/20 22:30 02/25/20 23:21 Protonix Iv IVPUSH 02/25/20 22:31 40 mg ONCE ONE Administration ED Progress Note - Progress Note Progress Note: 02/26/20 00:08 Received signout from DEANDRE Fernandes. Briefly this is a 24-year-old woman presents emergency department for evaluation of dizziness, nausea and vomiting. Patient also with abdominal burning which started yesterday. Patient was seen in this ER and treated for sinusitis with azithromycin which she had started prior to symptoms starting. Patient has received Pepcid, Maalox, meclizine, Zofran and Reglan as well as 1 L of normal saline. Patient is pending reevaluation for disposition. Medical Decision Making - Medical Decision Making 02/26/20 00:10 Patient given a second liter of fluids and Ativan 1 mg IV. Patient reports her symptoms have completely resolved. Patient is tolerating p.o.'s without difficulty at this time. As laboratory testing is unremarkable I feel it is safe to discharge the patient home to follow-up with her primary doctor. I discussed the physical exam findings, ancillary test results and final diagnoses with the patient. I answered all of the patient's questions. The patient was satisfied with the care received and felt comfortable with the d ischarge plan and treatment plan. The patient will call their primary care physician within 24 hours to arrange follow-up and will return to the Emergency Department with any new, persistent or worsening symptoms. Portions of this note have been documented using voice recognition software. As a result, errors may occur in the sccm administrator process. Effort has been made to correct all grammatical and sccm administrator error, but some may have been missed which may produce sporadic inaccurate sccm administrator or nonsensical phrases. Discharge - Discharge Information Problems reviewed: Yes Clinical Impression/Diagnosis: Dizziness Condition: Fair Disposition: HOME - Admission No - Additional Discharge Information Prescriptions: Ondansetron [Zofran *Odt*] 4 mg SL BID #14 od.tablet - Follow up/Referral - Patient Discharge Instructions Additional Instructions: Rest, drink lots of fluids: Teas, water, soups Katarzyna bertha, carbonated beverages for the bubbles May try peppermint teas Avoid heavy , spicy or fatty foods until symptoms have resolved Avoid contact with others until fevers and symptoms resolved Lots of handwashing and good hygiene Continue [id number] medications for symptomatic relief Tylenol or Motrin for fever and pain May use Zofran-one tablet dissolved on tongue as needed for nausa. May repeat times one every 8 hours Followup with private physician in one to 2 days as needed Return to emergency department for worsened symptoms, fevers, dehydration - Post Discharge Activity
[2020-02-26 00:53] VITALS: BP 125/81; PULSE 64; TEMP 98.9
[2020-02-26 02:35] LABS: EPI CELLS 26 /uL (0-25.1); HYALINE CASTS 2 /uL (0-3.1); PH,URINE 5.5 (5.0-8.0); URINE APPEARANCE CLOUDY; URINE BACTERIA 1285 /uL (0-1359); URINE BILIRUBIN NEGATIVE (NEGATIVE); URINE COLOR YELLOW; URINE GLUCOSE (UA) NEGATIVE (NEGATIVE); URINE KETONE NEGATIVE (NEGATIVE); URINE LEUK ESTERASE 3+ (NEGATIVE); URINE NITRITE NEGATIVE (NEGATIVE); URINE PROTEIN NEGATIVE (NEGATIVE); URINE RBC 100 /uL (0-23.9); URINE UROBILINOGEN 0.2 mg/dL (0.2-1.0); URINE WBC 582 /uL (0-25.8)
[2020-02-26 02:36] LABS: HCG,QUALITATIVE URINE Negative
--- NOTE | 2020-02-26 11:31 | EKG ---
Test Reason : Blood Pressure : / mmHG Vent. Rate : 072 BPM Atrial Rate : 072 BPM P-R Int : 158 ms QRS Dur : 084 ms QT Int : 408 ms P-R-T Axes : 001 051 022 degrees QTc Int : 446 ms NORMAL SINUS RHYTHM NORMAL ECG NO PREVIOUS ECGS AVAILABLE Confirmed by MYNOR WILKERSON MD ([id number]) on 02/26/2020 11:31:08 AM Referred By: Confirmed By:MYNOR WILKERSON MD
== END 2020-02-26 00:54 | disposition home or self-care (01) ==
LOC: JER 19:55
PROC: 3E033NZ Introduction of Analgesics, Hypnotics, Sedatives into Peripheral Vein, Percutaneous Approach (ICD-10-PCS; principal; 2020-02-25)
PROC: 3E033GC Introduction of Other Therapeutic Substance into Peripheral Vein, Percutaneous Approach (ICD-10-PCS; 2020-02-25)
PROC: 3E0337Z Introduction of Electrolytic and Water Balance Substance into Peripheral Vein, Percutaneous Approach (ICD-10-PCS; 2020-02-25)
DX: R42 Dizziness and giddiness (principal)
CPT/HCPCS: 36415; 80053; 81003; 82962; 83690; 84702; 84703; 85025; 87086; 93005; 93010; 99284-25

== ENCOUNTER 2023-05-15 21:00 | Emergency (ER) | payer OTHER ==
[2023-05-15 21:17] VITALS: BP 124/92; PULSE 91; RESP 16; TEMP 99.5; BMI 29.2
[2023-05-15] MEDS ORDERED: AZITHROMYCIN 500 MG TABLET PO ONE (21:57)
[2023-05-15] MEDS ORDERED: AZITHROMYCIN 500 MG TABLET ONE (21:58)
[2023-05-16 00:22] LABS: THROAT:GRP A STREP NOT DETECTED (NOTDETECTED)
== END 2023-05-15 22:11 | disposition home or self-care (01) ==
LOC: FER 21:00
DX: J02.9 Acute pharyngitis, unspecified (principal); M79.10 Myalgia, unspecified site; R09.81 Nasal congestion; B34.9 Viral infection, unspecified; Z20.822 Contact with and (suspected) exposure to COVID-19
CPT/HCPCS: 0241U-QW; 87651; 99283-25

== ENCOUNTER 2024-04-21 23:49 | Emergency (ER) | payer OTHER ==
[2024-04-21 23:59] VITALS: BP 129/94; RESP 20; TEMP 98.1; BMI 28.3
[2024-04-22 00:17] VITALS: PULSE 93
== END 2024-04-22 00:27 | disposition home or self-care (01) ==
LOC: FER 23:49
DX: R09.81 Nasal congestion (principal); T48.5X5A Adverse effect of other anti-common-cold drugs, initial encounter
CPT/HCPCS: 99282-25

== ENCOUNTER 2024-05-20 13:09 | Emergency (ER) | payer OTHER ==
[2024-05-20 13:16] VITALS: BP 110/79; PULSE 72; RESP 20; TEMP 99.3; BMI 29.2
== END 2024-05-20 17:10 | disposition home or self-care (01) ==
LOC: FER 13:09
DX: S61.213A Laceration without foreign body of left middle finger without damage to nail, initial encounter (principal); S05.11XA Contusion of eyeball and orbital tissues, right eye, initial encounter; R68.84 Jaw pain; R51.9 Headache, unspecified; M54.2 Cervicalgia; F41.9 Anxiety disorder, unspecified; Y04.8XXA Assault by other bodily force, initial encounter
CPT/HCPCS: 70450-TC; 70486-TC; 73130-TC-LT-FY; 81025; 99284-25